=== PATIENT | male | born 1945 | race Caucasian/White ===

== ENCOUNTER 2017-04-16 12:16 | Inpatient (IN) | payer OTHER, MEDICARE ==
--- NOTE | 2017-04-16 13:26 | PDOC ---
History of Present Illness - History of Present Illness Initial Comments: 04/16/17 14:15 Patient is a 72 year old male with significant medical hx of anemia, throat and lung adenocarcinoma s/p resection, s/p chemotherapy and radiation treatment, and emphysema who is presenting to the ED with three days of increasing shortness of breath and RUQ pain. Patient complains of severe RUQ pain that is sharp, non-radiating, and pleuritic but not associated with any nausea or diarrhea. states the patient has had several episodes of vomiting but none today. The patient reports shortness of breath that worsens with exertional activity. He also endorses some productive cough with sputum production. Denies fever, chills, orthopnea, chest pain, palpitations, weakness, dizziness, or lightheadedness. Patient states he had been prescribed home oxygen but he has not filled the prescription because he felt that he hasnt needed it until the last three days. PCP: Bernardino Ybarra <Nyla Goff - Last Filed: 04/16/17 14:44> <Fatoumata Patel - Last Filed: 04/17/17 19:59> - General Chief Complaint: Shortness of Breath Stated Complaint: SENT BY PCP Time Seen by Provider: 04/16/17 13:13 Past History <Nyla Goff - Last Filed: 04/16/17 14:44> - Past Medical History Anemia: No Asthma: No Cancer: Yes (THROAT, LUNG) Cardiac Disorders: No CVA: No COPD: Yes CHF: No Dementia: No Diabetes: No GI Disorders: No Disorders: Yes (H/O KIDNEY STONES) HTN: Yes Hypercholesterolemia: No Liver Disease: No Seizures: No Thyroid Disease: No - Surgical History Abdominal Surgery: Yes (HERNIA) Appendectomy: No Cardiac Surgery: No Cholecystectomy: No Lung Surgery: No Neurologic Surgery: No Orthopedic Surgery: No - Psycho/Social/Smoking Cessation Hx Suicidal Ideation: No Smoking History: Former smoker Have you smoked in the past 12 months: No Number of Cigarettes Smoked Daily: 10 If you are a former smoker, when did you quit?: APRIL 2015 Information on smoking cessation initiated: No 'Breaking Loose' booklet given: 03/29/13 Hx Alcohol Use: No Drug/Substance Use Hx: No Substance Use Type: None Hx Substance Use Treatment: No <Fatoumata Patel - Last Filed: 04/17/17 19:59> - Past Medical History Allergies/Adverse Reactions: Allergies Allergy/AdvReac Type Severity Reaction Status Date / Time No Known Drug Allergies Allergy Verified 04/16/17 12:24 Home Medications: Ambulatory Orders Pantoprazole Sodium [Protonix -] 40 mg PO BID 11/23/15 Aspirin [ASA -] 81 mg PO DAILY 04/16/17 Atorvastatin Ca [Lipitor] 5 mg PO HS 04/16/17 Metronidazole [Flagyl -] 500 mg PO BID 04/16/17 Multivitamins [Tab-A-Vit -] 1 tab PO DAILY 04/16/17 Prednisone 10 mg PO BID 04/16/17 Review of Systems - Review of Systems Comments:: 04/16/17 14:16 GENERAL/CONSTITUTIONAL: No fever or chills. No weakness. HEAD, EYES, EARS, NOSE AND THROAT: No change in vision. No ear pain or discharge. No sore throat. CARDIOVASCULAR: Shortness of breath. No chest pain. RESPIRATORY: Productive cough, dyspnea with exertion. No orthopnea, wheezing, or hemoptysis. GASTROINTESTINAL: RUQ pain, vomiting. No nausea, diarrhea or constipation. GENITOURINARY: No dysuria, frequency, or change in urination. MUSCULOSKELETAL: No joint or muscle swelling or pain. No neck or back pain. ENDOCRINE: No increased thirst. No abnormal weight change. SKIN: No rash NEUROLOGIC: No headache, vertigo, loss of consciousness, or change in strength/ sensation. <ShellFedericoNyla - Last Filed: 04/16/17 14:44> *Physical Exam - Vital Signs Last Vital Signs Temp Pulse Resp BP Pulse Ox 97.7 F 137 H 34 H 123/72 84 L 04/16/17 12:18 04/16/17 12:18 04/16/17 12:18 04/16/17 12:18 04/16/17 12:18 - Physical Exam Comments: 04/16/17 14:17 GENERAL: Awake, alert, and fully oriented, in no acute distress HEAD: No signs of trauma EYES: PERRLA, EOMI, sclera anicteric, conjunctiva clear ENT: Auricles normal inspection, hearing grossly normal, nares patent, oropharynx clear without exudates. Moist mucosa NECK: Normal ROM, supple, no lymphadenopathy, JVD, or masses LUNGS: Slightly tachypneic. Rhonchi bilaterally mostly pronounced on the right. No accessory muscles use. No wheezes, and no crackles HEART: Regular rate and rhythm, normal S1 and S2, no murmurs, rubs or gallops ABDOMEN: Soft, RUQ tenderness with some voluntary guarding, normoactive bowel sounds. No masses EXTREMITIES: Normal range of motion, no edema. No clubbing or cyanosis. No cords, erythema, or tenderness NEUROLOGICAL: AAO x 3. Cranial nerves II through XII grossly intact. Normal speech, normal gait SKIN: Warm, Dry, normal turgor, no rashes or lesions noted. HEMATOLOGIC/LYMPHATIC: No anemia, easy bleeding, or history of blood clots. ALLERGIC/IMMUNOLOGIC: No hives or skin allergy. <Nyla Goff - Last Filed: 04/16/17 14:44> - Vital Signs Last Vital Signs Temp Pulse Resp BP Pulse Ox 97.7 F 137 H 34 H 123/72 84 L 04/16/17 12:18 04/16/17 12:18 04/16/17 12:18 04/16/17 12:18 04/16/17 12:18 <Fatoumata Patel - Last Filed: 04/17/17 19:59> Heart Score/ECG Review #1 04/16/17 14:33 Poor data quality, interpretation may be adversely affected Sinus tachycardia at 123 bpm with premature atrial complexes Otherwise normal ECG <Nyla Goff - Last Filed: 04/16/17 14:44> ED Treatment Course - LABORATORY CBC & Chemistry Diagram: 04/16/17 13:33 04/16/17 13:33 - RADIOLOGY Radiograph Interpretation: 04/16/17 14:44 Chest X-Ray Impression: Chronic lung disease with developing right lung infiltrates as described. Reported By: Jian Orozco MD <Nyla Goff - Last Filed: 04/16/17 14:44> - LABORATORY CBC & Chemistry Diagram: 04/17/17 06:30 04/17/17 06:30 - RADIOLOGY Radiology Studies Ordered: Category Date Time Status CHEST X-RAY PORTABLE* [RAD] Stat Radiology 04/16/17 13:04 Taken <Fatoumata Patel - Last Filed: 04/17/17 19:59> Medical Decision Making - Medical Decision Making 04/16/17 13:36 Pt presents to the ED complaining of shortness of breath and RUQ pain for the last three days. Complaining of MARINELLI and productive cough. Denies fevers. Patient is hypoxic in the ED. reports that he has a history of emphysema and lung CA post resection, and that he has been prescribed home O2 that he does not use. Also has RUQ pain and tenderness. + Rhonchi on exam, worse on the R side. Differential includes PNA, recurrent CA, biliary disease, less likely cardiac disease or pancretitis. WIll check labs and CXR, likely admit to medicine. Will obtain imaging of the RUQ if the CXR is negative for R sided PNA. <Fatoumata Patel - Last Filed: 04/17/17 19:59> *DC/Admit/Observation/Transfer - Attestations Scribe Attestion: 04/16/17 14:20 Documentation prepared by Nyla Goff, acting as medical support assistant for Fatoumata Patel MD. <Nyla Goff - Last Filed: 04/16/17 14:44> - Discharge Dispostion Admit: Yes Decision to Admit order Date/Time: 04/17/17 19:59 <Fatoumata Patel - Last Filed: 04/17/17 19:59> Diagnosis at time of Disposition: Pneumonia - Discharge Dispostion Condition at time of disposition: Good - Referrals
[2017-04-16] MEDS ORDERED: ALBUTEROL SO4 0.083% IH SOL 2.5 MG/3 ML VIAL.NEB. NEB ONE ×2 (13:51→14:21)
[2017-04-16 13:59] LABS: BASOPHIL 0.1 % (0-2.0); EOSINOPHIL 0.3 % (0-4.5); MCH 27.8 pg (25.7-33.7); MEAN CELL VOLUME 84.2 fl (80-96); MEAN PLT VOLUME 8.1 fl (7.5-11.1); PLATELET COUNT 128 K/MM3 (134-434); RDW 16.4 % (11.9-15.9); WHITE BLOOD COUNT 14.1 K/mm3 (4.0-10.0)
[2017-04-16 14:27] LABS: ANION GAP 13 (8-16); BILIRUBIN,TOTAL 0.9 mg/dL (0.2-1.0); CALCIUM 8.4 mg/dL (8.5-10.1); CO2 25 mmol/L (21-32); COCKROFT - GAULT 58.79; CREATININE 1.2 mg/dL (0.7-1.3); GLUCOSE,RANDOM 118 mg/dL (74-106); SGPT/ALT 17 U/L (12-78); TOT PROT 5.7 g/dl (6.4-8.2)
[2017-04-16 14:29] LABS: ALK PHOS 105 U/L (45-117); SGOT/AST 26 U/L (15-37); TROPONIN I < 0.02 ng/ml (0.00-0.05)
[2017-04-16] MEDS ORDERED: LEVOFLOXACIN 750 MG IVPB 150 ML IVPB ONE ×2 (14:41→14:57)
[2017-04-16] MEDS ORDERED: ACETAMINOPHEN 325 MG TABLET (FP) ONE (15:35)
[2017-04-16] MEDS ORDERED: IPRATROPIUM BR 0.02% 0.5 MG/2.5 ML VIAL.NEB. NEB PRN ×2 (17:25→23:26)
[2017-04-16] MEDS ORDERED: ACETAMINOPHEN 325 MG TABLET (FP) PO PRN ×2 (17:29→23:26)
[2017-04-16 19:04] VITALS: BMI 22.1
[2017-04-16 20:01] LABS: ARTERIAL BLD GAS O2 SATURATION 94.2 % (90-98.9); ARTERIAL BLOOD GAS BASE EXCESS 2.3 meq/l (-2-2); ARTERIAL BLOOD GAS HCO3 25.3 meq/L (22-26); ARTERIAL BLOOD GAS PO2 69.3 mmHg (70-100); ARTERIAL BLOOD GAS pH 7.47 (7.35-7.45)
[2017-04-16 20:02] LABS: ALLENS TEST POSITIVE; ART PUNCT SITE RIGHT RADIAL; LPM/O2% NASAL O2; PT. ON O2? 3L
[2017-04-16] MEDS ORDERED: methylPREDNISolone NA SUCC 40 MG/1 ML VIAL IVPB SCH (21:00)
[2017-04-16] MEDS ORDERED: methylPREDNISolone NA SUCC 125 MG/2 ML VIAL ONE (22:30)
[2017-04-17] MEDS: methylPREDNISolone NA SUCC 40 MG/1 ML VIAL IVPB SCH ×4 (02:47→21:50)
[2017-04-17] MEDS ORDERED: LEVOFLOXACIN 500 MG IVPB 100 ML IVPB SCH ×2 (06:00)
[2017-04-17 07:22] LABS: MCH 28.2 pg (25.7-33.7); MCHC 33.5 g/dl (32.0-35.9); MEAN CELL VOLUME 84.4 fl (80-96); MEAN PLT VOLUME 8.1 fl (7.5-11.1); PLATELET COUNT 122 K/MM3 (134-434); WHITE BLOOD COUNT 10.3 K/mm3 (4.0-10.0)
[2017-04-17 08:13] LABS: ALBUMIN 1.9 g/dl (3.4-5.0); ANION GAP 12 (8-16); CALCIUM 8.1 mg/dL (8.5-10.1); CO2 25 mmol/L (21-32); GLUCOSE,RANDOM 142 mg/dL (74-106)
[2017-04-17 08:17] LABS: ALK PHOS 88 U/L (45-117); BILIRUBIN,TOTAL 0.7 mg/dL (0.2-1.0); COCKROFT - GAULT 71.29; CREATININE 0.9 mg/dL (0.7-1.3); SGOT/AST 19 U/L (15-37); SGPT/ALT 16 U/L (12-78); TOT PROT 5.4 g/dl (6.4-8.2)
[2017-04-17 09:37] LABS: INR 1.6 (0.82-1.09); PROTHROMBIN TIME (PATIENT) 17.8 SEC (9.98-11.88)
[2017-04-17] MEDS: SODIUM CHLORIDE 0.45% 1,000 ML IV SCH (10:00)
[2017-04-17] MEDS ORDERED: PANTOPRAZOLE SODIUM 100 ML IVPB SCH (10:00)
[2017-04-17 10:04] LABS: ARTERIAL BLD GAS O2 SATURATION 94.7 % (90-98.9); ARTERIAL BLOOD GAS BASE EXCESS 1.2 meq/l (-2-2); ARTERIAL BLOOD GAS HCO3 24.5 meq/L (22-26); ARTERIAL BLOOD GAS pH 7.45 (7.35-7.45)
[2017-04-17 10:05] LABS: ALLENS TEST POSITIVE; ART PUNCT SITE RIGHT RADIAL; LPM/O2% 4L; PT. ON O2? YES; TYPE OF O2 NASAL CANNULA
[2017-04-17] MEDS: IPRATROPIUM BR 0.02% 0.5 MG/2.5 ML VIAL.NEB. NEB SCH ×3 (10:06→22:55)
[2017-04-17] MEDS: PANTOPRAZOLE SODIUM 40 MG/100 ML PRE-DOCKED IVPB SCH (10:50)
[2017-04-17] MEDS ORDERED: IPRATROPIUM BR 0.02% 0.5 MG/2.5 ML VIAL.NEB. NEB PRN (12:00)
--- NOTE | 2017-04-17 12:12 | PN ---
Progress Note (short form) - Note Progress Note: ID Consult dictated 72 y/o male PMH lung ca (11/30) admitted with several days hx RUQ pain, N/V US abdo cholelithiasis without evidence of cholecystitis CXR + R lung infiltrates R pneumonia Possible cholecystitis Hx lung ca ? recurrence Obtain c/s CT chest , A/P Empiric zosyn
[2017-04-17] MEDS ORDERED: PIPERACILLIN/TAZOB 3.375 GM 3.375 GM in DEXTROSE 5%-WATER - 50 ML IVPB SCH (12:15)
--- NOTE | 2017-04-17 12:41 | HP ---
Admitting History and Physical - Admission Chief Complaint: c/o cough ruq pain. 3 days History of Present Illness: h/o lung ca copd bronchitis History Source: Patient, Family Member Limitations to Obtaining History: No Limitations - Past Medical History Pulmonary: Yes: COPD Gastrointestinal: Yes: Other (gallstones) Hepatobiliary: Yes: Cholelithiasis, Other (fatty liver) Heme/Onc: Yes: Anemia, Current Chemotherapy, Current Radiation Therapy ENT: Yes: Other (cataract sx) - Smoking History Smoking history: Former smoker Have you smoked in the past 12 months: No Aproximately how many cigarettes per day: 10 If you are a former smoker, when did you quit?: APRIL 2015 - Alcohol/Substance Use Hx Alcohol Use: No - Social History ADL: Independent History of Recent Travel: No Home Medications - Allergies Allergies/Adverse Reactions: Allergies Allergy/AdvReac Type Severity Reaction Status Date / Time No Known Drug Allergies Allergy Verified 04/16/17 12:24 - Home Medications Home Medications: Ambulatory Orders Pantoprazole Sodium [Protonix -] 40 mg PO BID 11/23/15 Aspirin [ASA -] 81 mg PO DAILY 04/16/17 Atorvastatin Ca [Lipitor] 5 mg PO HS 04/16/17 Metronidazole [Flagyl -] 500 mg PO BID 04/16/17 Multivitamins [Tab-A-Vit -] 1 tab PO DAILY 04/16/17 Prednisone 10 mg PO BID 04/16/17 Family Disease History - Family Disease History Family History: Unremarkable Review of Systems - Review of Systems Constitutional: reports: Other (cough ruq pain) Eyes: reports: No Symptoms HENT: reports: No Symptoms Neck: reports: No Symptoms Cardiovascular: reports: No Symptoms Respiratory: reports: Cough, SOB on Exertion Gastrointestinal: reports: Abdominal Pain Genitourinary: reports: No Symptoms Breasts: reports: No Symptoms Reported Musculoskeletal: reports: No Symptoms Integumentary: reports: No Symptoms Neurological: reports: No Symptoms Endocrine: reports: No Symptoms Hematology/Lymphatic: reports: No Symptoms Psychiatric: reports: No Symptoms Physical Examination Vital Signs: Vital Signs Temperature 97.7 F 04/17/17 12:35 Pulse Rate 101 H 04/17/17 12:35 Respiratory Rate 24 04/17/17 12:35 Blood Pressure 102/63 04/17/17 12:35 O2 Sat by Pulse Oximetry (%) 95 04/17/17 10:06 Constitutional: Yes: Well Nourished Eyes: Yes: WNL HENT: Yes: WNL Neck: Yes: WNL Cardiovascular: Yes: WNL Respiratory: Yes: SOB on Exertion Gastrointestinal: Yes: Soft ...Rectal Exam: Yes: Deferred Renal/: Yes: WNL Breast(s): Yes: WNL Musculoskeletal: Yes: WNL Extremities: Yes: WNL Edema: No Peripheral Pulses WNL: Yes Integumentary: Yes: WNL Neurological: Yes: WNL ...Motor Strength: WNL Psychiatric: Yes: WNL Labs: CBC, BMP 04/17/17 06:30 04/17/17 06:30 Assessment/Plan neb tx pulm f/u abgs? iv fluids liq diet chkj labs in am
[2017-04-17] MEDS: PIPERACILLIN/TAZOB 3.375 GM 50 ML IVPB SCH ×3 (13:01→20:16)
--- NOTE | 2017-04-17 14:02 | CON.PULM ---
Consult Consult Specialty:: PULMONARY Referred by:: JACKIE Reason for Consultation:: LUNG CA/SOB /COUGH - History of Present Illness Chief Complaint: SOB/COUGH/SPUTUM ABNORMAL CXR History of Present Illness: Patient is a 72 year old male with significant medical hx of anemia, laryngeal and lung adenocarcinoma s/p resection, s/p chemotherapy and radiation treatment , and emphysema who is presenting to the ED with five days of increasing shortness of breath and RUQ pain. Patient complains of severe RUQ pain that is sharp and was associated with diarrhea and vomiting. The patient reports shortness of breath that worsens with exertional activity. He also complains of productive cough with sputum production which is chronic. Denies fever, chills, orthopnea, chest pain, palpitations, weakness, dizziness, or lightheadedness. Presently feel improved. 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 No: Cancer Hepatobiliary: Yes: Cholelithiasis, Other (fatty liver) Renal/: No: Renal Failure Heme/Onc: Yes: Anemia Infectious Disease: No: AIDS Psych: No: Addictions Musculoskeletal: No: Chronic low back pain Rheumatology: No: Fibromyalgia ENT: Yes: Other (cataract sx) - Past Surgical History Past Surgical History: Yes: Hernia Repair - Alcohol/Substance Use Hx Alcohol Use: No History of Substance Use: reports: None - Smoking History Smoking history: Former smoker Have you smoked in the past 12 months: No Aproximately how many cigarettes per day: 10 If you are a former smoker, when did you quit?: APRIL 2015 - Social History ADL: Independent History of Recent Travel: No Home Medications - Allergies Allergies/Adverse Reactions: Allergies Allergy/AdvReac Type Severity Reaction Status Date / Time No Known Drug Allergies Allergy Verified 04/16/17 12:24 - Home Medications Home Medications: Ambulatory Orders Pantoprazole Sodium [Protonix -] 40 mg PO BID 11/23/15 Aspirin [ASA -] 81 mg PO DAILY 04/16/17 Atorvastatin Ca [Lipitor] 5 mg PO HS 04/16/17 Metronidazole [Flagyl -] 500 mg PO BID 04/16/17 Multivitamins [Tab-A-Vit -] 1 tab PO DAILY 04/16/17 Prednisone 10 mg PO BID 04/16/17 Family Disease History - Family Disease History Family History: Unremarkable Review of Systems - Review of Systems Cardiovascular: reports: Chest Pain (RIGHT LOWER RIBS) Respiratory: reports: Cough, Exercise Intolerance, SOB on Exertion. denies: Hemoptysis Gastrointestinal: reports: Abdominal Pain Genitourinary: reports: No Symptoms Breasts: reports: No Symptoms Reported Musculoskeletal: reports: No Symptoms Integumentary: reports: No Symptoms Neurological: reports: No Symptoms Endocrine: reports: No Symptoms Hematology/Lymphatic: reports: No Symptoms Physical Exam Vital Sings: Vital Signs Temperature 97.7 F 04/17/17 12:35 Pulse Rate 101 H 04/17/17 12:35 Respiratory Rate 24 04/17/17 12:35 Blood Pressure 102/63 04/17/17 12:35 O2 Sat by Pulse Oximetry (%) 95 04/17/17 10:06 Constitutional: Yes: Calm Eyes: Yes: EOM Intact HENT: Yes: Normocephalic Neck: Yes: Trachea Midline Cardiovascular: Yes: Regular Rate and Rhythm, S1, S2 Respiratory: Yes: Rales (ON RIGHT) ...Inspection: Yes: Other (NO ZOSTER NOTED) Gastrointestinal: Yes: Soft Extremities: Yes: WNL Edema: No Neurological: Yes: Alert Labs: CBC, BMP 04/17/17 06:30 04/17/17 06:30 ABG Results ABG pH 7.45 (7.35-7.45) 04/17/17 09:45 ABG pCO2 at Pt Temp 35.8 mmHg (35-45) 04/17/17 09:45 ABG pO2 at Pt Temp 71.0 mmHg (70-100) 04/17/17 09:45 ABG HCO3 24.5 meq/L (22-26) 04/17/17 09:45 ABG O2 Sat (Measured) 94.7 % (90-98.9) 04/17/17 09:45 ABG O2 Content 16.8 % vol (15-22) 04/17/17 09:45 ABG Base Excess 1.2 meq/l (-2-2) 04/17/17 09:45 REST REVIEWED Imaging - Results Chest X-ray: Image Reviewed Ultrasound: Report Reviewed Problem List - Problems (1) COPD (chronic obstructive pulmonary disease) Code(s): J44.9 - CHRONIC OBSTRUCTIVE PULMONARY DISEASE, UNSPECIFIED (2) Hx of gallstones Code(s): Z87.19 - PERSONAL HISTORY OF OTHER DISEASES OF THE DIGESTIVE SYSTEM (3) Lung neoplasm Code(s): D49.1 - NEOPLASM OF UNSPECIFIED BEHAVIOR OF RESPIRATORY SYSTEM Assessment/Plan RIGHT UPPER ABD QUADRANT/RIGHT LOWER RIB REGION PAIN WHICH HAS NOW RESOLVED H/O LUNG/LARYNGEAL CA S/P CHEMOTX/RT/RESECTION ABD SONO DOES NOT SUPPORT ACUTE CHOLECYSTITIS NO EVIDENCE OF SHINGLES WOULD OBTAIN CT CHEST/ABD GIVEN H/O LUNG CA AGREE WITH O2 SUPPLEMENTATION NEEDED/BRONCHODILATORS/EMPIRIC ANTIBIOTICS NO NEED FOR HIGH DOSE STEROIDS/WOULD DISCONTINUE CHECK CULTURES PENDING WILL FOLLOW THANK YOU Nacho GARCIA MD
--- NOTE | 2017-04-17 15:21 | CONS ---
DATE OF CONSULTATION: HISTORY: The patient is a 72-year-old male with a history of head and neck cancer as well as stage 3 carcinoma of the lung now evaluated for pneumonia versus cholecystitis. The patient does not give a reliable history. He reports he has not been feeling well for the past 4-5 days. He developed intermittent, severe right upper quadrant abdominal pain to the point where he was unable to palpate that area without eliciting pain. In addition, he had episodes of nausea and vomiting. The symptoms were preceded by episodes of diarrhea. He presented to the emergency room where he was afebrile, however, had an elevated white blood cell count. A sonogram was performed of the right upper quadrant and performed cholelithiasis without evidence of acute cholecystitis. Chest x-ray showed patchy infiltrate involving the right lung field. The patient reports cough productive of yellowish sputum. He denies any hemoptysis. He denies any associated fever or chills. The patient was diagnosed with stage 3 head and neck cancer as well as stage 3 lung cancer in November 2015. He reports undergoing radiotherapy as well as chemotherapy at [facility]. PAST MEDICAL HISTORY: As above. ALLERGIES: No known allergies. MEDICATIONS: Protonix, aspirin, Lipitor, prednisone. SOCIAL HISTORY: Former smoker. Denies history of alcohol abuse. SYSTEMS REVIEW: Neurologic: No loss of consciousness, seizure activity, focal weakness. Cardiac: Negative chest pain or palpitations. Respiratory: As per HPI. Gastrointestinal: As per HPI. Genitourinary: Negative for urinary tract infection. LABORATORY DATA: White count on admission 14,000, presently 10.3, hematocrit 39.7, platelet count 122, BUN 25, creatinine 0.9. Liver enzymes normal. Blood cultures pending. PHYSICAL EXAMINATION: General: He is awake and alert. He is in no acute distress. His breathing is nonlabored. Vital Signs: Temperature 97.8, blood pressure 97/48, pulse 95 and regular, respirations 24 per minute. HEENT: Sclerae anicteric. Heart: Sounds S1, S2. Lungs: Rhonchi bilaterally right greater than left with crepitation right mid and lower lung field. Abdomen: Soft. There is no tenderness elicited. No mass, rebound, or rigidity. No Nur sign. Extremities: Negative for edema. A 72-year-old male with a history of head, neck, and lung cancer status post radiation and chemotherapy now admitted with several days history of right upper quadrant abdominal pain, nausea, and vomiting. Sonogram shows cholelithiasis without evidence of acute cholecystitis. Chest x-ray shows diffuse right-sided infiltrate. IMPRESSION: 1. Right-sided pneumonia. 2. Possible acute cholecystitis. 3. Possible recurrent lung cancer. 4. Leukocytosis. Clinical presentation suggestive of acute cholecystitis; however, at the present time, he is pain free. Liver enzymes are normal. No sonographic evidence of dilated ducts. He does have an abnormal chest x-ray, which may represent community-acquired versus atypical pneumonia. Considered about the possibility of recurrent lung cancer. PLAN: We will obtain cultures. Obtain sputum C and S, urine Legionella antigen. CAT scan of the chest, abdomen, and pelvis to further evaluate right-sided pneumonia and exclude the possibility of recurrent cancer as well as CAT scan of the biliary system. Empiric antibiotic coverage with Zosyn. Further recommendations pending cultures. We will follow. Thank you for the kind referral. HANNAH NUNO M.D. [id number]
--- NOTE | 2017-04-17 19:19 | EKG ---
Test Reason : Blood Pressure : / mmHG Vent. Rate : 123 BPM Atrial Rate : 123 BPM P-R Int : 126 ms QRS Dur : 088 ms QT Int : 318 ms P-R-T Axes : 073 028 065 degrees QTc Int : 455 ms POOR DATA QUALITY, INTERPRETATION MAY BE ADVERSELY AFFECTED SINUS TACHYCARDIA WITH PREMATURE ATRIAL COMPLEXES OTHERWISE NORMAL ECG WHEN COMPARED WITH ECG OF 23-NOV-2015 00:24, PREMATURE ATRIAL COMPLEXES ARE NOW PRESENT Confirmed by ELIZABETH ANTHONY MD ([id number]) on 04/17/2017 7:18:29 PM Referred By: Confirmed By:ELIZABETH ANTHONY MD
[2017-04-18] MEDS: methylPREDNISolone NA SUCC 40 MG/1 ML VIAL IVPB SCH ×2 (02:14→08:10)
[2017-04-18] MEDS: PIPERACILLIN/TAZOB 3.375 GM 50 ML IVPB SCH ×3 (02:15→17:38)
[2017-04-18] MEDS: IPRATROPIUM BR 0.02% 0.5 MG/2.5 ML VIAL.NEB. NEB SCH ×6 (02:21→21:59)
[2017-04-18 07:12] LABS: CALCIUM 7.9 mg/dL (8.5-10.1); COCKROFT - GAULT 71.29; CREATININE 0.9 mg/dL (0.7-1.3)
[2017-04-18 08:48] LABS: BASOPHIL 0.1 % (0-2.0); MCH 28.7 pg (25.7-33.7); MCHC 34.1 g/dl (32.0-35.9); MEAN CELL VOLUME 84.3 fl (80-96); MEAN PLT VOLUME 8.3 fl (7.5-11.1); NEUTROPHILS 97.5 % (42.8-82.8); PLATELET COUNT 137 K/MM3 (134-434); RDW 16.2 % (11.9-15.9); WHITE BLOOD COUNT 11.3 K/mm3 (4.0-10.0)
--- NOTE | 2017-04-18 10:34 | PN ---
Progress Note, Physician - Current Medication List Current Medications: Active Medications Acetaminophen (Tylenol -) 650 mg PO Q4H PRN PRN Reason: FEVER OR PAIN Piperacillin Sod/Tazobactam Sod (Zosyn 3.375gm Ivpb (Pre-Docked)) 50 mls @ 100 mls/hr IVPB Q8H-IV ADAN PRN Reason: Protocol Last Admin: 04/18/17 02:15 Dose: 100 mls/hr Ipratropium [place] (Atrovent 0.02% Nebulizer -) 1 amp NEB Q4HPO ADAN Last Admin: 04/18/17 05:49 Dose: 1 amp Methylprednisolone Sodium Succinate (Solu-Medrol -) 40 mg IVPB Q6H-IV ADAN Last Admin: 04/18/17 08:10 Dose: 40 mg Pantoprazole Sodium (Protonix 40mg Ivpb (Pre-Docked)) 40 mg IVPB DAILY ADAN Last Admin: 04/17/17 10:50 Dose: 40 mg - Objective Vital Signs: Vital Signs Temperature 97.5 F L 04/18/17 09:25 Pulse Rate 96 H 04/18/17 09:25 Respiratory Rate 20 04/18/17 09:25 Blood Pressure 98/48 04/18/17 09:25 O2 Sat by Pulse Oximetry (%) 93 L 04/17/17 21:10 Labs: CBC, BMP 04/18/17 06:15 04/18/17 06:15 INR, PTT INR 1.60 (0.82-1.09) H 04/17/17 06:30 Assessment/Plan awaitig ct abd befor advancing diet cont as is d/c iv na dropping chk labs i am reduce iv
[2017-04-18] MEDS: PANTOPRAZOLE SODIUM 40 MG/100 ML PRE-DOCKED IVPB SCH (10:38)
--- NOTE | 2017-04-18 12:08 | PN ---
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 HAVE CHANGED TO ORAL PREDNISONE AWAIT OFFICIAL REPORTS ON CT SCANS aNcho GARCIA MD Problem List - Problems (1) COPD (chronic obstructive pulmonary disease) Code(s): J44.9 - CHRONIC OBSTRUCTIVE PULMONARY DISEASE, UNSPECIFIED (2) Hx of gallstones Code(s): Z87.19 - PERSONAL HISTORY OF OTHER DISEASES OF THE DIGESTIVE SYSTEM (3) Lung neoplasm Code(s): D49.1 - NEOPLASM OF UNSPECIFIED BEHAVIOR OF RESPIRATORY SYSTEM
[2017-04-18] MEDS: SODIUM CHLORIDE 1,000 ML IV SCH (12:56)
[2017-04-18] MEDS: predniSONE 20 MG TABLET (UD) PO SCH (14:03)
[2017-04-18] MEDS: SODIUM CHLORIDE 0.45% 1,000 ML IV SCH (14:05)
[2017-04-19] MEDS: SODIUM CHLORIDE 1,000 ML IV SCH ×2 (01:41→10:45)
[2017-04-19] MEDS: PIPERACILLIN/TAZOB 3.375 GM 50 ML IVPB SCH ×2 (01:41→11:17)
[2017-04-19] MEDS: IPRATROPIUM BR 0.02% 0.5 MG/2.5 ML VIAL.NEB. NEB SCH ×6 (02:40→22:25)
[2017-04-19 07:16] LABS: BASOPHIL 0.3 % (0-2.0); EOSINOPHIL 0.1 % (0-4.5); MCH 28.3 pg (25.7-33.7); MCHC 33.6 g/dl (32.0-35.9); MEAN CELL VOLUME 84.1 fl (80-96); MEAN PLT VOLUME 7.6 fl (7.5-11.1); NEUTROPHILS 92.4 % (42.8-82.8); PLATELET COUNT 137 K/MM3 (134-434); WHITE BLOOD COUNT 10.4 K/mm3 (4.0-10.0)
[2017-04-19 07:43] LABS: CALCIUM 7.9 mg/dL (8.5-10.1); COCKROFT - GAULT 71.29; CREATININE 0.9 mg/dL (0.7-1.3)
[2017-04-19] MEDS: predniSONE 20 MG TABLET (UD) PO SCH (09:22)
[2017-04-19] MEDS: PANTOPRAZOLE SODIUM 40 MG/100 ML PRE-DOCKED IVPB SCH (09:24)
[2017-04-19] MEDS ORDERED: LOPERAMIDE HCL 2 MG CAPSULE PO PRN (11:57)
[2017-04-19] MEDS ORDERED: metroNIDAZOLE 250 MG TABLET PO SCH (12:15)
--- NOTE | 2017-04-19 13:43 | PN ---
Progress Note, Physician History of Present Illness: pulmonary alert,nad,-sob,-cp,+cough yellow sputum,-hemoptysis - Current Medication List Current Medications: Active Medications Acetaminophen (Tylenol -) 650 mg PO Q4H PRN PRN Reason: FEVER OR PAIN Sodium Chloride (Normal Saline -) 1,000 mls @ 42 mls/hr IV ASDIR [facility] Last Admin: 04/19/17 01:41 Dose: 42 mls/hr Ipratropium [place] (Atrovent 0.02% Nebulizer -) 1 amp NEB Q4HPO [facility] Last Admin: 04/19/17 10:06 Dose: 1 amp Loperamide HCl (Imodium -) 2 mg PO Q4H PRN PRN Reason: DIARRHEA Loperamide HCl (Imodium -) 2 mg PO Q6H PRN PRN Reason: DIARRHEA Metronidazole (Flagyl -) 500 mg PO BID [facility] Stop: 04/24/17 12:14 Pantoprazole Sodium (Protonix 40mg Ivpb (Pre-Docked)) 40 mg IVPB DAILY [facility] Last Admin: 04/19/17 09:24 Dose: 40 mg Prednisone (Deltasone -) 20 mg PO DAILY [facility] Last Admin: 04/19/17 09:22 Dose: 20 mg - Objective Vital Signs: Vital Signs Temperature 97.6 F 04/19/17 09:59 Pulse Rate 98 H 04/19/17 09:59 Respiratory Rate 18 04/19/17 09:59 Blood Pressure 105/57 04/19/17 09:59 O2 Sat by Pulse Oximetry (%) 94 L 04/19/17 09:58 Constitutional: Yes: Well Nourished, Calm Eyes: Yes: WNL HENT: Yes: WNL, Tonsillar Exudate Cardiovascular: Yes: Regular Rate and Rhythm, S1, S2 Respiratory: Yes: Rhonchi (few scattered rhonchi) Gastrointestinal: Yes: Normal Bowel Sounds, Soft Extremities: Yes: WNL Edema: No Labs: CBC, BMP 04/19/17 06:40 04/19/17 06:40 INR, PTT INR 1.60 (0.82-1.09) H 04/17/17 06:30 - ....Imaging Cat Scan: Report Reviewed, Image Reviewed Assessment/Plan Problem List - Problems (1) COPD (chronic obstructive pulmonary disease) Code(s): J44.9 - CHRONIC OBSTRUCTIVE PULMONARY DISEASE, UNSPECIFIED (2) Hx of gallstones Code(s): Z87.19 - PERSONAL HISTORY OF OTHER DISEASES OF THE DIGESTIVE SYSTEM (3) Lung neoplasm Code(s): D49.1 - NEOPLASM OF UNSPECIFIED BEHAVIOR OF RESPIRATORY SYSTEM Assessment/Plan RIGHT UPPER ABD QUADRANT/RIGHT LOWER RIB REGION PAIN WHICH HAS NOW RESOLVED H/O LUNG/LARYNGEAL CA S/P CHEMOTX/RT/RESECTION R LUNG NODULAR CONSOLIDATIONS O2 SUPPLEMENTATION BRONCHODILATORS EMPIRIC ANTIBIOTICS DR RAY
[2017-04-19] MEDS: LOPERAMIDE HCL 2 MG CAPSULE PO PRN (14:35)
--- NOTE | 2017-04-19 14:51 | PN ---
Progress Note, Physician - Current Medication List Current Medications: Active Medications Acetaminophen (Tylenol -) 650 mg PO Q4H PRN PRN Reason: FEVER OR PAIN Sodium Chloride (Normal Saline -) 1,000 mls @ 42 mls/hr IV ASDIR [facility] Last Admin: 04/19/17 10:45 Dose: 42 mls/hr Ipratropium [place] (Atrovent 0.02% Nebulizer -) 1 amp NEB Q4HPO [facility] Last Admin: 04/19/17 10:06 Dose: 1 amp Loperamide HCl (Imodium -) 2 mg PO Q4H PRN PRN Reason: DIARRHEA Last Admin: 04/19/17 14:35 Dose: 2 mg Loperamide HCl (Imodium -) 2 mg PO Q6H PRN PRN Reason: DIARRHEA Metronidazole (Flagyl -) 500 mg PO BID [facility] Stop: 04/24/17 12:14 Last Admin: 04/19/17 14:35 Dose: 500 mg Pantoprazole Sodium (Protonix 40mg Ivpb (Pre-Docked)) 40 mg IVPB DAILY [facility] Last Admin: 04/19/17 09:24 Dose: 40 mg Prednisone (Deltasone -) 20 mg PO DAILY [facility] Last Admin: 04/19/17 09:22 Dose: 20 mg - Objective Vital Signs: Vital Signs Temperature 97.6 F 04/19/17 09:59 Pulse Rate 98 H 04/19/17 09:59 Respiratory Rate 18 04/19/17 09:59 Blood Pressure 105/57 04/19/17 09:59 O2 Sat by Pulse Oximetry (%) 94 L 04/19/17 09:58 Labs: CBC, BMP 04/19/17 06:40 04/19/17 06:40 INR, PTT INR 1.60 (0.82-1.09) H 04/17/17 06:30 Assessment/Plan pt feel better c/o loose bms vss flagly po given zosyn stopped but restarted by pulm will f/u out pt [facility] chk stool
--- NOTE | 2017-04-19 14:58 | PN ---
Progress Note (short form) - Note Progress Note: surgery pt seen and examined. no further pain. afebrile abd- soft, nt Plan- ruq pain in setting of pneumonia, possible right lung ca, and right sided colitis with gallstones. clinically resolved. pt is a poor candidate for surgery and unclear if gb is source of pain. would not offer elective surgery at this time.
[2017-04-19] MEDS ORDERED: PIPERACILLIN/TAZOB 3.375 GM/50 ML PRE-DOCKED IVPB SCH (15:00)
--- NOTE | 2017-04-19 15:58 | PN ---
Progress Note (short form) - Note Progress Note: reports 2 days of diarrhea at home, resolved and then restarted yesterday no abdominal pain, feels better now Vital Signs Period Temp Pulse Resp BP Sys/Kapoor Pulse Ox Last 24 Hr 97.5 F-97.9 F 89-104 16-20 105-136/44-77 94-95 cor-rrr lungs bilateral rhonchi abd soft,nt ext no edema CBC, BMP 04/19/17 06:40 04/19/17 06:40 Microbiology 04/16/17 14:48 Blood - Peripheral Venous Blood Culture - Preliminary NO GROWTH OBTAINED AFTER 72 HOURS, INCUBATION TO CONTINUE FOR 2 DAYS. 04/16/17 14:48 Blood - Peripheral Venous Blood Culture - Preliminary NO GROWTH OBTAINED AFTER 72 HOURS, INCUBATION TO CONTINUE FOR 2 DAYS. 04/17/17 18:45 Sputum - Expectorated Gram Stain - Final 04/17/17 18:45 Sputum - Expectorated Sputum Culture - Preliminary NORMAL RESPIRATORY ISABEL 04/17/17 18:45 Urine For Antigen Detection Legionella Antigen - Final 04/17/17 18:45 Urine For Antigen Detection Streptococcus pneumoniae Antigen (M - Final a/p possible pneumonia possible colitis- history of diarrhea check stool cdiff, stool culture agree with flagyl switch to rocephin
[2017-04-19] MEDS: cefTRIAXone 1 GM/50 ML BAG (PRE-DOCKED) IVPB SCH (16:54)
[2017-04-19] MEDS: metroNIDAZOLE 250 MG TABLET PO SCH (21:28)
[2017-04-20] MEDS: IPRATROPIUM BR 0.02% 0.5 MG/2.5 ML VIAL.NEB. NEB SCH ×3 (02:05→09:51)
[2017-04-20] MEDS: SODIUM CHLORIDE 1,000 ML IV SCH ×3 (02:42→23:24)
[2017-04-20] MEDS: metroNIDAZOLE 250 MG TABLET PO SCH ×3 (06:19→21:48)
[2017-04-20] MEDS: ASPIRIN 81 MG CHEWABLE TABLETS PO ONE ×2 (09:25→12:12)
[2017-04-20] MEDS: cefTRIAXone 1 GM/50 ML BAG (PRE-DOCKED) IVPB SCH (09:29)
[2017-04-20] MEDS ORDERED: ONDANSETRON 4 MG/2 ML VIAL IVPB PRN ×2 (10:12→10:13)
[2017-04-20 10:52] LABS: ARTERIAL BLD GAS O2 SATURATION 93.6 % (90-98.9); ARTERIAL BLOOD GAS BASE EXCESS 4.8 meq/l (-2-2); ARTERIAL BLOOD GAS HCO3 28.7 meq/L (22-26); ARTERIAL BLOOD GAS pH 7.46 (7.35-7.45)
--- NOTE | 2017-04-20 10:55 | EKG ---
Test Reason : Blood Pressure : / mmHG Vent. Rate : 125 BPM Atrial Rate : 125 BPM P-R Int : 128 ms QRS Dur : 094 ms QT Int : 304 ms P-R-T Axes : 054 028 057 degrees QTc Int : 438 ms SINUS TACHYCARDIA WITH PREMATURE ATRIAL COMPLEXES OTHERWISE NORMAL ECG WHEN COMPARED WITH ECG OF 16-APR-2017 14:01, NO SIGNIFICANT CHANGE WAS FOUND Confirmed by SUDHEER HARDEN, RACHEL ([id number]) on 04/20/2017 10:55:34 AM Referred By: Margi HUBBARD Confirmed By:RACHEL WILLARD MD
[2017-04-20 10:57] LABS: ALLENS TEST POSITIVE; ART PUNCT SITE RIGHT RADIAL; LPM/O2% 3L; PT. ON O2? YES; TYPE OF O2 NASAL
[2017-04-20 10:58] LABS: ARTERIAL BLOOD GAS PO2 65.8 mmHg (70-100)
[2017-04-20] MEDS: PANTOPRAZOLE SODIUM 40 MG/100 ML PRE-DOCKED IVPB SCH (11:16)
--- NOTE | 2017-04-20 11:17 | PN ---
Progress Note, Physician Chief Complaint: nasea ruq pain now resoled sv tach - Current Medication List Current Medications: Active Medications Acetaminophen (Tylenol -) 650 mg PO Q4H PRN PRN Reason: FEVER OR PAIN Ceftriaxone Sodium (Rocephin 1gm Ivpb (Pre-Docked)) 1 gm IVPB DAILY [facility] PRN Reason: Protocol Last Admin: 04/20/17 09:29 Dose: 1 gm Sodium Chloride (Normal Saline -) 1,000 mls @ 42 mls/hr IV ASDIR [facility] Last Admin: 04/20/17 02:42 Dose: 42 mls/hr Ipratropium [place] (Atrovent 0.02% Nebulizer -) 1 amp NEB Q4HPO [facility] Last Admin: 04/20/17 09:51 Dose: 1 amp Loperamide HCl (Imodium -) 2 mg PO Q4H PRN PRN Reason: DIARRHEA Last Admin: 04/19/17 14:35 Dose: 2 mg Loperamide HCl (Imodium -) 2 mg PO Q6H PRN PRN Reason: DIARRHEA Metronidazole (Flagyl -) 500 mg PO TID [facility] Last Admin: 04/20/17 06:19 Dose: 500 mg Ondansetron HCl (Zofran Injection) 4 mg IVPB Q4H PRN PRN Reason: NAUSEA AND/OR VOMITING Last Admin: 04/20/17 10:32 Dose: 4 mg Ondansetron HCl (Zofran Injection) 4 mg IVPB Q6H PRN PRN Reason: NAUSEA AND/OR VOMITING Pantoprazole Sodium (Protonix 40mg Ivpb (Pre-Docked)) 40 mg IVPB DAILY [facility] Last Admin: 04/20/17 09:25 Dose: 40 mg - Objective Vital Signs: Vital Signs Temperature 99.2 F 04/20/17 09:21 Pulse Rate 127 H 04/20/17 09:21 Respiratory Rate 28 H 04/20/17 09:21 Blood Pressure 110/50 04/20/17 09:21 O2 Sat by Pulse Oximetry (%) 94 L 04/20/17 09:38 Constitutional: Yes: Calm Eyes: Yes: WNL HENT: Yes: WNL Neck: Yes: WNL Cardiovascular: Yes: WNL Respiratory: Yes: Diminished Gastrointestinal: Yes: Normal Bowel Sounds, Soft ...Rectal Exam: Yes: Deferred Genitourinary: Yes: WNL Breast(s): Yes: WNL Musculoskeletal: Yes: WNL Extremities: Yes: WNL Edema: No Peripheral Pulses WNL: Yes Integumentary: Yes: WNL Neurological: Yes: WNL ...Motor Strength: WNL Psychiatric: Yes: WNL Labs: CBC, BMP 04/19/17 06:40 04/19/17 06:40 INR, PTT INR 1.60 (0.82-1.09) H 04/17/17 06:30 Assessment/Plan neb tx strat card enzymes now ekg abg gi to see pt chest p/t zofranpo lung ca morfine if pain increses doubt pe all colitis related diarrea resolving f/u pt closely outcome will be poor if underlinig pneumonia not better if there is a pneumonia and not ca lung need to stabalize pt to go to [facility]
[2017-04-20 11:35] LABS: TROPONIN I < 0.02 ng/ml (0.00-0.05)
--- NOTE | 2017-04-20 11:42 | PN ---
Progress Note (short form) - Note Progress Note: PULMONARY Breathing about the same as yesterday. No fevers or chills but coughing up thick brown/yellow sputum. Last Vital Signs Temp Pulse Resp BP Pulse Ox 99.2 F 127 H 28 H 110/50 94 L 04/20/17 09:21 04/20/17 09:21 04/20/17 09:21 04/20/17 09:21 04/20/17 09:38 Gen: mildly tachypneic at rest Heart: tachycardic, regular Lung: scattered rhonchi Abd: soft, nontender Ext: no edema CBC, BMP 04/19/17 06:40 04/19/17 06:40 Active Medications Acetaminophen (Tylenol -) 650 mg PO Q4H PRN PRN Reason: FEVER OR PAIN Albuterol/Ipratropium (Duoneb -) 1 amp NEB Q4H PRN PRN Reason: SHORTNESS OF BREATH Ceftriaxone Sodium (Rocephin 1gm Ivpb (Pre-Docked)) 1 gm IVPB DAILY [facility] PRN Reason: Protocol Last Admin: 04/20/17 09:29 Dose: 1 gm Sodium Chloride (Normal Saline -) 1,000 mls @ 42 mls/hr IV ASDIR [facility] Last Admin: 04/20/17 02:42 Dose: 42 mls/hr Loperamide HCl (Imodium -) 2 mg PO Q4H PRN PRN Reason: DIARRHEA Last Admin: 04/19/17 14:35 Dose: 2 mg Loperamide HCl (Imodium -) 2 mg PO Q6H PRN PRN Reason: DIARRHEA Metronidazole (Flagyl -) 500 mg PO TID [facility] Last Admin: 04/20/17 06:19 Dose: 500 mg Ondansetron HCl (Zofran Injection) 4 mg IVPB Q4H PRN PRN Reason: NAUSEA AND/OR VOMITING Last Admin: 04/20/17 10:32 Dose: 4 mg Ondansetron HCl (Zofran Injection) 4 mg IVPB Q6H PRN PRN Reason: NAUSEA AND/OR VOMITING Pantoprazole Sodium (Protonix 40mg Ivpb (Pre-Docked)) 40 mg IVPB DAILY [facility] Last Admin: 04/20/17 11:16 Dose: 40 mg A/P Pneumonia r/o Colitis Lung/Laryngeal Ca s/p Chemotherapy/RT COPD/Emphysema - continue antibiotics - f/u cultures - inhaled bronchodilators - O2 as needed - DVT prophylaxis
--- NOTE | 2017-04-20 12:35 | CON.CARD ---
Cardiology Consult (text) - Consultation Consultation Note: CC: tachycardia 72 yo male with h/o lung adenocarcinoma s/p resection chemo and XRT, copd, cholelithiasis, fatty liver who presents with nausea/vomiting. Hospital course complicated by tachycardia. Daughter states that is followed by cardiology. Heart rate has been slowly rising over the past few months. Resting HR now in the 100's. Had recent echocardiogram for further evaluation. Otherwise, no cardiac history. not on home oxygen. + n/v/d now improving. taking po. + fatigue. + cough. denies dysphagia. denies f/c/s, h/a, congestion, rashes, bleeding. denies sob, orthopnea, pnd, le edema, palps, dizziness. 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 Fam Hx: No CAD/ND ROS: per HPI Ambulatory Orders Pantoprazole Sodium [Protonix -] 40 mg PO BID 11/23/15 Aspirin [ASA -] 81 mg PO DAILY 04/16/17 Atorvastatin Ca [Lipitor] 5 mg PO HS 04/16/17 Metronidazole [Flagyl -] 500 mg PO BID 04/16/17 Multivitamins [Tab-A-Vit -] 1 tab PO DAILY 04/16/17 Prednisone 10 mg PO BID 04/16/17 Current Medications Acetaminophen (Tylenol -) 650 mg PO Q4H PRN PRN Reason: FEVER OR PAIN Albuterol/Ipratropium (Duoneb -) 1 amp NEB Q4H PRN PRN Reason: SHORTNESS OF BREATH Ceftriaxone Sodium (Rocephin 1gm Ivpb (Pre-Docked)) 1 gm IVPB DAILY [facility] PRN Reason: Protocol Last Admin: 04/20/17 09:29 Dose: 1 gm Sodium Chloride (Normal Saline -) 1,000 mls @ 42 mls/hr IV ASDIR [facility] Last Admin: 04/20/17 02:42 Dose: 42 mls/hr Loperamide HCl (Imodium -) 2 mg PO Q4H PRN PRN Reason: DIARRHEA Last Admin: 04/19/17 14:35 Dose: 2 mg Loperamide HCl (Imodium -) 2 mg PO Q6H PRN PRN Reason: DIARRHEA Metronidazole (Flagyl -) 500 mg PO TID [facility] Last Admin: 04/20/17 06:19 Dose: 500 mg Ondansetron HCl (Zofran Injection) 4 mg IVPB Q4H PRN PRN Reason: NAUSEA AND/OR VOMITING Last Admin: 04/20/17 10:32 Dose: 4 mg Ondansetron HCl (Zofran Injection) 4 mg IVPB Q6H PRN PRN Reason: NAUSEA AND/OR VOMITING Pantoprazole Sodium (Protonix 40mg Ivpb (Pre-Docked)) 40 mg IVPB DAILY [facility] Last Admin: 04/20/17 11:16 Dose: 40 mg Vital Signs - 24 hr 04/19/17 04/19/17 04/19/17 15:00 18:37 22:00 Temperature 98 F 97.6 F 98.3 F Pulse Rate 100 H 106 H 92 H Respiratory 18 18 18 Rate Blood Pressure 114/58 111/62 128/61 O2 Sat by Pulse 95 Oximetry (%) 04/20/17 04/20/17 04/20/17 07:00 09:21 09:38 Temperature 98.1 F 99.2 F Pulse Rate 102 H 127 H Respiratory 18 28 H Rate Blood Pressure 106/40 110/50 O2 Sat by Pulse 94 L Oximetry (%) 04/20/17 11:53 Temperature Pulse Rate 124 H Respiratory 28 H Rate Blood Pressure 104/59 O2 Sat by Pulse Oximetry (%) Intake & Output 04/18/17 04/19/17 04/20/17 04/21/17 07:59 07:59 07:59 07:59 Intake Total 2950 2184 2504 200 Output Total 2 1 350 Balance 2948 2183 2154 200 nad, calm jvd flat, neck supple diffuse rales, nl effort tachycardic, regular nl s1, s2 soft 2/6 murmur at sternal border + bs soft nt nd ext without e/c/c + dp/pt aaox3 no jaundice, diaphoresis CBC, BMP 04/19/17 06:40 04/19/17 06:40 Laboratory Tests 04/20/17 04/20/17 10:40 11:00 ABG pH 7.46 H ABG pCO2 at Pt Temp 41.4 ABG pO2 at Pt Temp 65.8 L Creatine Kinase 12 L EKG: st with pac. no ischemic changes chest CT: decreased size of rt perihilar mass. extensive rul bronchictasis with possible cavitary consolidation patchy LLL consolidation. small mediastinal l. nodes. possible colitis. + compression fractures 72 yo male with h/o lung adenocarcinoma s/p resection chemo and XRT, copd, cholelithiasis, fatty liver who presents with nausea/vomiting. Hospital course complicated by tachycardia. tachycardia - EKG sinus. Would treat underlying clincial conditions. Currently with increasing respiratory rate and oxygen requirement (although appears comfortable ). Have uptitrated oxygen flow. Ongoing mgm't of pulmonary disease per pmd/ pulm. remains afebrile. ID following as well. - also with recent n/v/d. may have component of dehydration. orthostatic vitals and adjust IVF rate as needed. - mgm't of abdominal discomfort and possible underlying GI illness per pmd/GI c/ s. pain control. - patient with recent elevated heart rates as well. Had recent echo for further evaluation. Daughter to get copy of report.
--- NOTE | 2017-04-20 14:30 | CON.GI ---
Consult Consult Specialty:: Gastroenterology - History of Present Illness History of Present Illness: 72 y/o male with PMH of stage lung and head and neck cancer diagnosed 2015 was doing well until 5 days ago when he developed moderate marvin pain associated with nausea and vomiting. He was also noted to have cholelithiasis. At present he was noted to have multiple lung lesions associated with pneumonia. Patient continue to have intermittent ruq pain and nausea - Past Medical History [employer]: No: Alzheimer's Cardio/Vascular: No: AFIB Pulmonary: Yes: Cancer (ADENOCARCINOMA), COPD, O2 Dependent, Pneumonia Gastrointestinal: Yes: Other (gallstones). No: Cancer Hepatobiliary: Yes: Cholelithiasis, Other (fatty liver) Renal/: No: Renal Failure Infectious Disease: No: AIDS Psych: No: Addictions Musculoskeletal: No: Chronic low back pain Rheumatology: No: Fibromyalgia ENT: Yes: Other (cataract sx) - Past Surgical History Past Surgical History: Yes: Hernia Repair - Alcohol/Substance Use Hx Alcohol Use: No History of Substance Use: reports: None - Smoking History Smoking history: Former smoker Have you smoked in the past 12 months: No Aproximately how many cigarettes per day: 10 If you are a former smoker, when did you quit?: APRIL 2015 - Social History ADL: Independent History of Recent Travel: No Home Medications - Allergies Allergies/Adverse Reactions: Allergies Allergy/AdvReac Type Severity Reaction Status Date / Time No Known Drug Allergies Allergy Verified 04/16/17 12:24 - Home Medications Home Medications: Ambulatory Orders Pantoprazole Sodium [Protonix -] 40 mg PO BID 11/23/15 Aspirin [ASA -] 81 mg PO DAILY 04/16/17 Atorvastatin Ca [Lipitor] 5 mg PO HS 04/16/17 Metronidazole [Flagyl -] 500 mg PO BID 04/16/17 Multivitamins [Tab-A-Vit -] 1 tab PO DAILY 04/16/17 Prednisone 10 mg PO BID 04/16/17 Physical Exam-GI Vital Signs: Vital Signs Temperature 98.2 F 04/20/17 12:53 Pulse Rate 118 H 04/20/17 12:53 Respiratory Rate 28 H 04/20/17 12:53 Blood Pressure 109/57 04/20/17 12:53 O2 Sat by Pulse Oximetry (%) 94 L 04/20/17 09:38 Constitutional: Yes: Well Nourished Eyes: Yes: Conjunctiva Clear HENT: Yes: Atraumatic Neck: Yes: Supple Cardiovascular: Yes: Regular Rate and Rhythm Respiratory: Yes: CTA Bilaterally ...Palpate: Yes: Soft. No: Firm/Rigid, Guarding, Hepatomegaly, Mass, Pulsatile Mass, Splenomegaly, Tenderness Labs: CBC, BMP 04/19/17 06:40 04/19/17 06:40 INR, PTT INR 1.60 (0.82-1.09) H 04/17/17 06:30 Problem List - Problems (1) RUQ abdominal pain Assessment/Plan: r/o secondary to biliary colic, cholecystitis and parapneumonic process R>HIDa scan with EF add Zofran and Reglan continue antibiotics for pneumonia Code(s): R10.11 - RIGHT UPPER QUADRANT PAIN
[2017-04-20] MEDS ORDERED: METOCLOPRAMIDE HCL INJECTION 10 MG/2 ML VIAL IVPB SCH (15:45)
[2017-04-20] MEDS ORDERED: ONDANSETRON 4 MG/2 ML VIAL IVPB SCH (15:45)
--- NOTE | 2017-04-20 17:11 | PN ---
Progress Note, Physician History of Present Illness: Reports feeling better No further RUQ pain Occasional cough, blood streaked sputum No c/o fever/ chills WBC improved - Current Medication List Current Medications: Active Medications Acetaminophen (Tylenol -) 650 mg PO Q4H PRN PRN Reason: FEVER OR PAIN Albuterol/Ipratropium (Duoneb -) 1 amp NEB Q4H PRN PRN Reason: SHORTNESS OF BREATH Ceftriaxone Sodium (Rocephin 1gm Ivpb (Pre-Docked)) 1 gm IVPB DAILY [facility] PRN Reason: Protocol Last Admin: 04/20/17 09:29 Dose: 1 gm Sodium Chloride (Normal Saline -) 1,000 mls @ 42 mls/hr IV ASDIR [facility] Last Admin: 04/20/17 10:45 Dose: Not Given Loperamide HCl (Imodium -) 2 mg PO Q4H PRN PRN Reason: DIARRHEA Last Admin: 04/19/17 14:35 Dose: 2 mg Loperamide HCl (Imodium -) 2 mg PO Q6H PRN PRN Reason: DIARRHEA Metoclopramide HCl (Reglan Injection -) 10 mg IVPB Q8H [facility] Metronidazole (Flagyl -) 500 mg PO TID [facility] Last Admin: 04/20/17 14:58 Dose: 500 mg Ondansetron HCl (Zofran Injection) 4 mg IVPB Q4H [facility] Stop: 04/21/17 03:46 Ondansetron HCl (Zofran Injection) 4 mg IVPB Q4H PRN PRN Reason: NAUSEA AND/OR VOMITING Pantoprazole Sodium (Protonix 40mg Ivpb (Pre-Docked)) 40 mg IVPB DAILY [facility] Last Admin: 04/20/17 11:16 Dose: 40 mg - Objective Vital Signs: Vital Signs Temperature 98.2 F 04/20/17 12:53 Pulse Rate 118 H 04/20/17 12:53 Respiratory Rate 28 H 04/20/17 12:53 Blood Pressure 109/57 04/20/17 12:53 O2 Sat by Pulse Oximetry (%) 94 L 04/20/17 09:38 Constitutional: Yes: No Distress Eyes: Yes: Conjunctiva Clear Cardiovascular: Yes: Regular Rate and Rhythm, S1, S2 Respiratory: Yes: Rhonchi Gastrointestinal: Yes: Normal Bowel Sounds, Soft. No: Tenderness Peripheral Pulses WNL: No Labs: CBC, BMP 04/19/17 06:40 04/19/17 06:40 INR, PTT INR 1.60 (0.82-1.09) H 04/17/17 06:30 Assessment/Plan R pneumonia Possible recurrence, lung ca Leukocytosis- improved Possible biliary colic Continue empiric ceftriaxone/ flagyl
[2017-04-20] MEDS: ONDANSETRON 4 MG/2 ML VIAL IVPB SCH ×2 (18:56→22:15)
[2017-04-20] MEDS: METOCLOPRAMIDE HCL INJECTION 10 MG/2 ML VIAL IVPB SCH ×2 (19:47→23:23)
[2017-04-21] MEDS: SODIUM CHLORIDE 1,000 ML IV SCH ×3 (01:52→22:30)
[2017-04-21] MEDS: ONDANSETRON 4 MG/2 ML VIAL IVPB SCH ×2 (02:29→07:34)
[2017-04-21] MEDS ORDERED: ONDANSETRON 4 MG/2 ML VIAL IVPB PRN (03:47)
[2017-04-21] MEDS ORDERED: SODIUM CHLORIDE 250 ML IV ONE (05:15)
[2017-04-21] MEDS ORDERED: ENOXAPARIN NA (PORCINE) 40 MG/0.4 ML DISP.SYRIN SQ SCH (05:15)
[2017-04-21 05:33] LABS: ARTERIAL BLD GAS O2 SATURATION 96.1 % (90-98.9); ARTERIAL BLOOD GAS BASE EXCESS 5.1 meq/l (-2-2); ARTERIAL BLOOD GAS HCO3 30.4 meq/L (22-26); ARTERIAL BLOOD GAS PO2 79.4 mmHg (70-100)
[2017-04-21 05:34] LABS: ALLENS TEST POSITIVE; ART PUNCT SITE RIGHT RADIAL; LPM/O2% 5LPM; PT. ON O2? YES; TYPE OF O2 N/C
[2017-04-21] MEDS: METOCLOPRAMIDE HCL INJECTION 10 MG/2 ML VIAL IVPB SCH ×3 (06:01→22:30)
[2017-04-21] MEDS: metroNIDAZOLE 250 MG TABLET PO SCH ×4 (06:01→22:30)
[2017-04-21] MEDS: ALBUTEROL SO4 2.5/IPRATROPIUM 0.5 INH SOL 3 ML VIAL.NEB. NEB PRN ×2 (06:50→17:03)
[2017-04-21 07:43] LABS: BASOPHIL 0.2 % (0-2.0); EOSINOPHIL 1.2 % (0-4.5); MCHC 33.3 g/dl (32.0-35.9); MEAN CELL VOLUME 83.9 fl (80-96); MEAN PLT VOLUME 7.9 fl (7.5-11.1); NEUTROPHILS 88.1 % (42.8-82.8); PLATELET COUNT 136 K/MM3 (134-434); RDW 16.4 % (11.9-15.9)
[2017-04-21 07:59] LABS: CALCIUM 7.5 mg/dL (8.5-10.1); COCKROFT - GAULT 91.66; CREATININE 0.7 mg/dL (0.7-1.3); MAGNESIUM 1.3 mg/dL (1.8-2.4)
[2017-04-21] MEDS: cefTRIAXone 1 GM/50 ML BAG (PRE-DOCKED) IVPB SCH (10:08)
[2017-04-21] MEDS: ENOXAPARIN NA (PORCINE) 60 MG/0.6 ML DISP.SYRIN SQ SCH ×2 (10:12→22:30)
--- NOTE | 2017-04-21 10:29 | PN ---
Progress Note (short form) - Note Progress Note: s: feeling a little better today, less cough/sob. no cp palps dizzy o: Vital Signs Period Temp Pulse Resp BP Sys/Kapoor Pulse Ox Last 24 Hr 98 F-100.8 F 93-124 14-28 83-111/30-78 94 nad, calm jvd flat diffuse rhonchi, nl effort rrr, nl s1, s2 soft 2/6 murmur at sternal border + bs soft nt nd ext without e/c/c aaox3 no jaundice, diaphoresis Current Medications Generic Name Dose Route Start Last Admin Trade Name Freq PRN Reason Stop Dose Admin Acetaminophen 650 mg 04/16/17 23:26 04/20/17 23:27 Tylenol - PO 650 mg Q4H PRN Administration FEVER OR PAIN Albuterol/Ipratropium 1 amp 04/20/17 11:30 04/21/17 06:50 Duoneb - NEB 1 amp Q4H PRN Administration SHORTNESS OF BREATH Ceftriaxone Sodium 1 gm 04/19/17 16:15 04/21/17 10:08 Rocephin 1gm Ivpb (Pre-Docked) IVPB 1 gm DAILY AD[facility] Administration Protocol Enoxaparin Sodium 60 mg 04/21/17 10:00 04/21/17 10:12 Lovenox - SQ 60 mg BID ADAN Administration Sodium Chloride 1,000 mls @ 100 mls/hr 04/20/17 23:00 04/21/17 10:11 Normal Saline - IV 100 mls/hr ASDIR [facility] Administration Loperamide HCl 2 mg 04/19/17 11:56 04/19/17 14:35 Imodium - PO 2 mg Q4H PRN Administration DIARRHEA Loperamide HCl 2 mg 04/19/17 11:57 Imodium - PO Q6H PRN DIARRHEA Metoclopramide HCl 10 mg 04/20/17 19:45 04/21/17 06:01 Reglan Injection - IVPB 10 mg TID AD[facility] Administration Metronidazole 500 mg 04/19/17 22:00 04/21/17 06:15 Flagyl - PO 500 mg TID [facility] Administration Ondansetron HCl 4 mg 04/21/17 03:47 Zofran Injection IVPB Q4H PRN NAUSEA AND/OR VOMITING Pantoprazole Sodium 40 mg 04/17/17 10:00 04/20/17 11:16 Protonix 40mg Ivpb (Pre-Docked) IVPB 40 mg DAILY [facility] Administration CBC, BMP 04/21/17 06:52 04/21/17 06:52 a/p: 72 yo male with h/o lung adenocarcinoma s/p resection chemo and XRT, copd , cholelithiasis, fatty liver who presents with nausea/vomiting. Hospital course complicated by tachycardia. tachycardia: -sinus tachy, improved. likely 2/2 underlying infection -cont to tx pna/sepsis with abx/ivfs -check echo hypotension, sepsis: -cont ivfs, abx -bp a little better this AM copd: -no wheezing -pulm following
--- NOTE | 2017-04-21 11:09 | PN ---
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 CT ABD REVIEWED ?RIGHT SIDED COLITIS/COMP FX SPINE ?PATHOLOGIC PATIENT'S LAST REPORTED MRI/PET WAS AT [facility] IN [place] I WAS TOLD BY DAUGHTER THAT IT WAS NEGATIVE I ASKED HER TO FAX COPY ADENOCARCINOMA RIGHT LUNG DXED IN AUG 2015 VIA NEEDLE BX/ RXED WITH RT/CHEMO SQUAMOUS CELL CA EPIGLOTTIS DXED IN AUG 2015 VIA NEEDLE BX RXED WITH RT CHEMO RIGHT VC PARALYSIS PER DAUGHTER WOULD CONTINUE ANTIBIOTICS FOR NOW TAPER STEROIDS SUGGEST SWALLOW EVAL I HAVE SPOKEN TO PTS DAUGHTER AND SHE WILL BRING ALL RECORDS I HAVE ORDERED A SWALLOW EVAL TO R/O ASPIRATION I HAVE SPOKEN TO DR MONTANEZ REGARDING CT CHEST FINDINGS, POSSIBLE PROGRESSION OF NEOPLASTIC DISEASE IS LIKELY. Nacho GARCIA MD Problem List - Problems (1) COPD (chronic obstructive pulmonary disease) Code(s): J44.9 - CHRONIC OBSTRUCTIVE PULMONARY DISEASE, UNSPECIFIED (2) Hx of gallstones Code(s): Z87.19 - PERSONAL HISTORY OF OTHER DISEASES OF THE DIGESTIVE SYSTEM (3) Lung neoplasm Code(s): D49.1 - NEOPLASM OF UNSPECIFIED BEHAVIOR OF RESPIRATORY SYSTEM
[2017-04-21] MEDS: PANTOPRAZOLE SODIUM 40 MG/100 ML PRE-DOCKED IVPB SCH (11:52)
[2017-04-21] MEDS ORDERED: MAGNESIUM SULF 50% (8.12 MEQ/2 ML-1 GM VIAL) IVPB ONE (12:00)
--- NOTE | 2017-04-21 13:07 | CONSULT ---
Admitting History and Physical - Primary Care Physician PCP: Bernardino Ybarra - Admission History of Present Illness: Patient is a 72 year old male with significant medical hx of anemia, throat and lung adenocarcinoma s/p resection, s/p chemotherapy and radiation treatment, and emphysema who is presenting to the ED with three days of increasing shortness of breath and RUQ pain. Pt had several episodes of vomiting prior to admission. 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" Selected Entries 04/19/17 04/19/17 04/19/17 06:49 09:59 15:00 Breakfast Lunch Supper Temperature 97.5 F L 97.6 F 98 F 04/19/17 04/19/17 04/20/17 18:37 22:00 07:00 Breakfast Lunch Supper Temperature 97.6 F 98.3 F 98.1 F 04/20/17 04/20/17 04/20/17 09:21 10:00 12:53 Breakfast 25% Lunch Supper Temperature 99.2 F 98.2 F 04/20/17 04/20/17 04/20/17 14:00 18:00 22:01 Breakfast Lunch 75% Supper 50% Temperature 98 F 100.8 F H 04/21/17 04/21/17 04:24 10:40 Breakfast Lunch Supper Temperature 98 F 98.2 F Laboratory Tests 04/17/17 04/18/17 04/19/17 06:30 06:15 06:40 WBC 10.3 H 11.3 H 10.4 H 04/21/17 06:52 WBC 7.0 D Progression of CA? r/o aspiration Pneumonia? 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 No: Cancer Hepatobiliary: Yes: Cholelithiasis, Other (fatty liver) Renal/: No: Renal Failure Heme/Onc: Yes: Anemia Infectious Disease: No: AIDS Psych: No: Addictions Musculoskeletal: No: Chronic low back pain Rheumatology: No: Fibromyalgia ENT: Yes: Other (cataract sx) - Past Surgical History Past Surgical History: Yes: Hernia Repair - Smoking History Smoking history: Former smoker Have you smoked in the past 12 months: No Aproximately how many cigarettes per day: 10 If you are a former smoker, when did you quit?: APRIL 2015 - Alcohol/Substance Use Hx Alcohol Use: No History of Substance Use: reports: None - Social History ADL: Independent History of Recent Travel: No History - Admission Reason For Visit: PNEUMONIA - Diagnostics CT Scan: Report Reviewed (Per Pulmonary-PROGRESSION OF INFILTRATES/NODULES AND MULTIPLE MASS LIKE CONSOLIDATIONS CONCERNING FOR PROGRESSION OF UNDERLYING NEOPLASTIC DISEASE) - General Mental Status: Alert and Oriented, Awake and Alert, Able to Follow Commands Attention: Intact Ability to Follow Directions: Excellent Head/Neck Control: WFL - Hearing Hearing: Normal Hearing Aide: No With Patient: No Speech Evaluation - Communication Primary Language: POLISH Oral Expression Ability: Yes: Mild Impairment - Speech Production Able to Make Needs Known: Yes: Mildly Impaired Intelligibility: Yes: Mildly Impaired - Speech Characteristics Voice Loudness: Normal Voice Pitch: Yes: Normal Voice Phonatory-based Quality: Yes: Harsh Speech Pattern: Impaired Speech Clarity: < 75% Nasal Resonance: Normal Articulation: Yes: Precise Rate of Speech: Intact - Language/Auditory Comprehension Follows: Yes: 2 Stage Simple Commands - Language/Verbal Expression Able to Respond to Simple Queries: Yes: WNL Able to Communicate Wants and Needs: Yes: WNL Functional Communication Status: Yes: WNL - Memory/Perception oil heaterman Memory: Yes: WNL Short Term Memory: Yes: WNL - Swallow Evaluation/Bedside Assessment Current Nutritional Intake: Regular, Thin Liquids Oral Secretions: Yes: WFL (c/o phlegm production and frequent cough.) Dentition: Yes: Dental Appliance Upper, Dental Appliance Lower Facial Symmetry at Rest: Symmetrical Facial Symmetry on Retraction: Symmetrical Facial Movement: Controlled Sensation: Normal Against Resistance Opening: Normal Against Resistance Closing: Normal Pucker Lips: Normal Smile: Normal Lingual Movement: Normal, Symmetric Lingual Speed of Movement: Normal Lingual Movement Strgth Against Opposition: Normal Lingual Movement Characteristics: Normal Soft Palate Description: Normal Color, Normal Symmetry Hard Palate Description: Normal Color, Normal Symmetry Velopharyngeal Movement: Normal Laryngeal Movement: Able to Palpate Rate of Intake: WFL Bolus Size: WFL Labial Seal: WFL Chewing: WFL Oral Prep Time: WFL A-P Transit: WFL Pocketing: None Timing of Swallow: WFL Coughing/Throat Clear: Yes Change in Voice: Yes (vocal wetness with continuous drinking) Recommendations - Speech Evaluation, Impression/Plan Impression: Harsh voice x 12 months. Coughs on thin liquids "if he is not careful.". Strong suspicion for aspiration pneumonia. - Dysphagia Impressions/Plan Swallowing Skills: Impaired Dysphagia Impressions: Ongoing Evaluation, Suspect Aspiration *Silent aspiration: cannot be R/O at bedside Dysphagia Treatment Plan: Chin Tuck/Down, Safe Rate, Elevate HOB during feed Recommendations: MBS w Esophagus - Recommendations Diet Consistency: Regular Liquids: Doral Thick Supplement: Other (Ensure compact, Magic cup)
--- NOTE | 2017-04-21 13:09 | PN ---
Progress Note, Physician - Current Medication List Current Medications: Active Medications Acetaminophen (Tylenol -) 650 mg PO Q4H PRN PRN Reason: FEVER OR PAIN Last Admin: 04/20/17 23:27 Dose: 650 mg Albuterol/Ipratropium (Duoneb -) 1 amp NEB Q4H PRN PRN Reason: SHORTNESS OF BREATH Last Admin: 04/21/17 06:50 Dose: 1 amp Ceftriaxone Sodium (Rocephin 1gm Ivpb (Pre-Docked)) 1 gm IVPB DAILY [facility] PRN Reason: Protocol Last Admin: 04/21/17 10:08 Dose: 1 gm Enoxaparin Sodium (Lovenox -) 60 mg SQ BID [facility] Last Admin: 04/21/17 10:12 Dose: 60 mg Sodium Chloride (Normal Saline -) 1,000 mls @ 100 mls/hr IV ASDIR [facility] Last Admin: 04/21/17 10:11 Dose: 100 mls/hr Loperamide HCl (Imodium -) 2 mg PO Q4H PRN PRN Reason: DIARRHEA Last Admin: 04/19/17 14:35 Dose: 2 mg Loperamide HCl (Imodium -) 2 mg PO Q6H PRN PRN Reason: DIARRHEA Metoclopramide HCl (Reglan Injection -) 10 mg IVPB TID [facility] Last Admin: 04/21/17 06:01 Dose: 10 mg Metronidazole (Flagyl -) 500 mg PO TID [facility] Last Admin: 04/21/17 06:15 Dose: 500 mg Ondansetron HCl (Zofran Injection) 4 mg IVPB Q4H PRN PRN Reason: NAUSEA AND/OR VOMITING Pantoprazole Sodium (Protonix 40mg Ivpb (Pre-Docked)) 40 mg IVPB DAILY [facility] Last Admin: 04/21/17 11:52 Dose: 40 mg - Objective Vital Signs: Vital Signs Temperature 98.2 F 04/21/17 10:40 Pulse Rate 102 H 04/21/17 10:40 Respiratory Rate 16 04/21/17 10:40 Blood Pressure 94/56 04/21/17 10:40 O2 Sat by Pulse Oximetry (%) 94 L 04/20/17 21:00 Labs: CBC, BMP 04/21/17 06:52 04/21/17 06:52 INR, PTT INR 1.60 (0.82-1.09) H 04/17/17 06:30 Assessment/Plan pt with temp labored breathing last night bp low also plan d dimer [address] neg foe pe leuvonox given abgs consistent with copd bp better watch fluids no to put pt in failure cont tx as is card appreciated hida scan in am now
--- NOTE | 2017-04-21 21:00 | PN ---
Progress Note, Physician History of Present Illness: Awake, alert Reports occasional cough with yellow sputum No c/o chest pain/ dyspnea RUQ pain resolved - Current Medication List Current Medications: Active Medications Acetaminophen (Tylenol -) 650 mg PO Q4H PRN PRN Reason: FEVER OR PAIN Last Admin: 04/20/17 23:27 Dose: 650 mg Albuterol/Ipratropium (Duoneb -) 1 amp NEB Q4H PRN PRN Reason: SHORTNESS OF BREATH Last Admin: 04/21/17 17:03 Dose: 1 amp Ceftriaxone Sodium (Rocephin 1gm Ivpb (Pre-Docked)) 1 gm IVPB DAILY [facility] PRN Reason: Protocol Last Admin: 04/21/17 10:08 Dose: 1 gm Enoxaparin Sodium (Lovenox -) 60 mg SQ BID [facility] Last Admin: 04/21/17 10:12 Dose: 60 mg Sodium Chloride (Normal Saline -) 1,000 mls @ 100 mls/hr IV ASDIR [facility] Last Admin: 04/21/17 10:11 Dose: 100 mls/hr Loperamide HCl (Imodium -) 2 mg PO Q4H PRN PRN Reason: DIARRHEA Last Admin: 04/19/17 14:35 Dose: 2 mg Loperamide HCl (Imodium -) 2 mg PO Q6H PRN PRN Reason: DIARRHEA Metoclopramide HCl (Reglan Injection -) 10 mg IVPB TID [facility] Last Admin: 04/21/17 14:44 Dose: 10 mg Metronidazole (Flagyl -) 500 mg PO TID [facility] Last Admin: 04/21/17 14:41 Dose: 500 mg Ondansetron HCl (Zofran Injection) 4 mg IVPB Q4H PRN PRN Reason: NAUSEA AND/OR VOMITING Pantoprazole Sodium (Protonix 40mg Ivpb (Pre-Docked)) 40 mg IVPB DAILY [facility] Last Admin: 04/21/17 11:52 Dose: 40 mg - Objective Vital Signs: Vital Signs Temperature 98.5 F 04/21/17 19:00 Pulse Rate 107 H 04/21/17 20:51 Respiratory Rate 18 04/21/17 20:51 Blood Pressure 97/43 04/21/17 20:51 O2 Sat by Pulse Oximetry (%) 90 L 04/21/17 09:00 Constitutional: Yes: No Distress Eyes: Yes: Conjunctiva Clear Cardiovascular: Yes: Regular Rate and Rhythm, S1, S2 Respiratory: Yes: Other (coarse rhonchi bilaterally) Gastrointestinal: Yes: Normal Bowel Sounds, Soft Edema: No Labs: CBC, BMP 04/21/17 06:52 04/21/17 06:52 INR, PTT INR 1.60 (0.82-1.09) H 04/17/17 06:30 Assessment/Plan R pneumonia Possible recurrence, lung ca Leukocytosis- resolved Possible biliary colic Continue empiric ceftriaxone/ flagyl
[2017-04-22] MEDS: metroNIDAZOLE 250 MG TABLET PO SCH ×3 (06:38→22:31)
[2017-04-22] MEDS: METOCLOPRAMIDE HCL INJECTION 10 MG/2 ML VIAL IVPB SCH ×2 (06:39→14:20)
[2017-04-22 08:14] LABS: BASOPHIL 0.2 % (0-2.0); MCH 27.7 pg (25.7-33.7); MCHC 32.4 g/dl (32.0-35.9); MEAN CELL VOLUME 85.5 fl (80-96); MEAN PLT VOLUME 7.7 fl (7.5-11.1); NEUTROPHILS 82.5 % (42.8-82.8); PLATELET COUNT 141 K/MM3 (134-434); RDW 16.9 % (11.9-15.9); WHITE BLOOD COUNT 5.7 K/mm3 (4.0-10.0)
[2017-04-22 08:32] LABS: CALCIUM 7.7 mg/dL (8.5-10.1); COCKROFT - GAULT 95.25; CREATININE 0.7 mg/dL (0.7-1.3); MAGNESIUM 1.7 mg/dL (1.8-2.4)
--- NOTE | 2017-04-22 09:30 | PN ---
Progress Note, Physician - Current Medication List Current Medications: Active Medications Acetaminophen (Tylenol -) 650 mg PO Q4H PRN PRN Reason: FEVER OR PAIN Last Admin: 04/20/17 23:27 Dose: 650 mg Albuterol/Ipratropium (Duoneb -) 1 amp NEB Q4H PRN PRN Reason: SHORTNESS OF BREATH Last Admin: 04/21/17 17:03 Dose: 1 amp Budesonide/Formoterol Fumarate (Symbicort 160/4.5mcg -) 2 puff IH BID [facility] Ceftriaxone Sodium (Rocephin 1gm Ivpb (Pre-Docked)) 1 gm IVPB DAILY [facility] PRN Reason: Protocol Last Admin: 04/21/17 10:08 Dose: 1 gm Enoxaparin Sodium (Lovenox -) 60 mg SQ BID [facility] Last Admin: 04/21/17 22:30 Dose: 60 mg Sodium Chloride (Normal Saline -) 1,000 mls @ 100 mls/hr IV ASDIR [facility] Last Admin: 04/21/17 22:30 Dose: 100 mls/hr Loperamide HCl (Imodium -) 2 mg PO Q4H PRN PRN Reason: DIARRHEA Last Admin: 04/19/17 14:35 Dose: 2 mg Loperamide HCl (Imodium -) 2 mg PO Q6H PRN PRN Reason: DIARRHEA Magnesium Sulfate (Magnesium Sulfate) 2 gm IVPB ONCE ONE Stop: 04/22/17 09:24 Metoclopramide HCl (Reglan Injection -) 10 mg IVPB TID [facility] Last Admin: 04/22/17 06:39 Dose: 10 mg Metronidazole (Flagyl -) 500 mg PO TID [facility] Last Admin: 04/22/17 06:38 Dose: 500 mg Ondansetron HCl (Zofran Injection) 4 mg IVPB Q4H PRN PRN Reason: NAUSEA AND/OR VOMITING Pantoprazole Sodium (Protonix 40mg Ivpb (Pre-Docked)) 40 mg IVPB DAILY [facility] Last Admin: 04/21/17 11:52 Dose: 40 mg - Objective Vital Signs: Vital Signs Temperature 98.9 F 04/22/17 02:26 Pulse Rate 117 H 04/22/17 02:26 Respiratory Rate 18 04/22/17 02:26 Blood Pressure 103/56 04/22/17 02:26 O2 Sat by Pulse Oximetry (%) 94 L 04/21/17 21:00 Labs: CBC, BMP 04/22/17 07:00 04/22/17 07:30 INR, PTT INR 1.60 (0.82-1.09) H 04/17/17 06:30 Assessment/Plan pt remains low bp despite ok echo results no temp no complaints wbc nl no diarrea dry mouth hida scan pnd today laba ics given biotin mouthwasch card f/u
[2017-04-22] MEDS ORDERED: MAGNESIUM SULF 50% (8.12 MEQ/2 ML-1 GM VIAL) IVPB ONE (10:15)
[2017-04-22] MEDS ORDERED: PT OWN MED DRAWER 7, Y5N ONE ×2 (10:25→22:04)
--- NOTE | 2017-04-22 10:49 | PN ---
Progress Note, DATA LIBRARIAN - Note Progress Note: I contacted Dr. Ybarra and recommended Hanahan thick liquid and MBS today. Orders placed.
--- NOTE | 2017-04-22 10:54 | PN ---
Progress Note, Physician History of Present Illness: Awake, responsive C/O cough productive of greenish sputum No hemoptysis Low grade fever WBC WNL - Current Medication List Current Medications: Active Medications Acetaminophen (Tylenol -) 650 mg PO Q4H PRN PRN Reason: FEVER OR PAIN Last Admin: 04/20/17 23:27 Dose: 650 mg Albuterol/Ipratropium (Duoneb -) 1 amp NEB Q4H PRN PRN Reason: SHORTNESS OF BREATH Last Admin: 04/21/17 17:03 Dose: 1 amp Budesonide/Formoterol Fumarate (Symbicort 160/4.5mcg -) 2 puff IH BID [facility] Ceftriaxone Sodium (Rocephin 1gm Ivpb (Pre-Docked)) 1 gm IVPB DAILY [facility] PRN Reason: Protocol Last Admin: 04/21/17 10:08 Dose: 1 gm Enoxaparin Sodium (Lovenox -) 60 mg SQ BID [facility] Last Admin: 04/21/17 22:30 Dose: 60 mg Sodium Chloride (Normal Saline -) 1,000 mls @ 100 mls/hr IV ASDIR [facility] Last Admin: 04/21/17 22:30 Dose: 100 mls/hr Loperamide HCl (Imodium -) 2 mg PO Q4H PRN PRN Reason: DIARRHEA Last Admin: 04/19/17 14:35 Dose: 2 mg Loperamide HCl (Imodium -) 2 mg PO Q6H PRN PRN Reason: DIARRHEA Metoclopramide HCl (Reglan Injection -) 10 mg IVPB TID [facility] Last Admin: 04/22/17 06:39 Dose: 10 mg Metronidazole (Flagyl -) 500 mg PO TID [facility] Last Admin: 04/22/17 06:38 Dose: 500 mg Ondansetron HCl (Zofran Injection) 4 mg IVPB Q4H PRN PRN Reason: NAUSEA AND/OR VOMITING Pantoprazole Sodium (Protonix 40mg Ivpb (Pre-Docked)) 40 mg IVPB DAILY [facility] Last Admin: 04/21/17 11:52 Dose: 40 mg Saliva Substitute (Mouthkote Solution -) 1 applic MM DAILY [facility] - Objective Vital Signs: Vital Signs Temperature 98.9 F 04/22/17 02:26 Pulse Rate 117 H 04/22/17 02:26 Respiratory Rate 18 04/22/17 02:26 Blood Pressure 103/56 04/22/17 02:26 O2 Sat by Pulse Oximetry (%) 94 L 04/21/17 21:00 Constitutional: Yes: No Distress Eyes: Yes: Conjunctiva Clear Cardiovascular: Yes: Regular Rate and Rhythm, S1, S2 Respiratory: Yes: CTA Bilaterally Gastrointestinal: Yes: Normal Bowel Sounds, Soft. No: Tenderness Edema: No Labs: CBC, BMP 04/22/17 07:00 04/22/17 07:30 INR, PTT INR 1.60 (0.82-1.09) H 04/17/17 06:30 Assessment/Plan R pneumonia Possible recurrence, lung ca Leukocytosis- resolved Possible biliary colic Continue empiric ceftriaxone/ flagyl HIDA pending
[2017-04-22] MEDS: cefTRIAXone 1 GM/50 ML BAG (PRE-DOCKED) IVPB SCH (11:11)
[2017-04-22] MEDS: ENOXAPARIN NA (PORCINE) 60 MG/0.6 ML DISP.SYRIN SQ SCH ×2 (11:12→22:31)
[2017-04-22] MEDS: PANTOPRAZOLE SODIUM 40 MG/100 ML PRE-DOCKED IVPB SCH (11:12)
--- NOTE | 2017-04-22 12:01 | PN ---
Progress Note (short form) - Note Progress Note: PULMONARY Breathing improving. No fevers or chills. Cough clearing. Last Vital Signs Temp Pulse Resp BP Pulse Ox 99.4 F 119 H 18 90/55 94 L 04/22/17 10:00 04/22/17 10:00 04/22/17 10:00 04/22/17 10:00 04/21/17 21:00 Gen: less tachypneic Heart: tachycardic, regular Lung: scattered rhonchi Abd: soft, nontender Ext: no edema CBC, BMP 04/22/17 07:00 04/22/17 07:30 Active Medications Acetaminophen (Tylenol -) 650 mg PO Q4H PRN PRN Reason: FEVER OR PAIN Last Admin: 04/20/17 23:27 Dose: 650 mg Albuterol/Ipratropium (Duoneb -) 1 amp NEB Q4H PRN PRN Reason: SHORTNESS OF BREATH Last Admin: 04/21/17 17:03 Dose: 1 amp Budesonide/Formoterol Fumarate (Symbicort 160/4.5mcg -) 2 puff IH BID [facility] Ceftriaxone Sodium (Rocephin 1gm Ivpb (Pre-Docked)) 1 gm IVPB DAILY [facility] PRN Reason: Protocol Last Admin: 04/22/17 11:11 Dose: 1 gm Enoxaparin Sodium (Lovenox -) 60 mg SQ BID [facility] Last Admin: 04/22/17 11:12 Dose: 60 mg Sodium Chloride (Normal Saline -) 1,000 mls @ 100 mls/hr IV ASDIR [facility] Last Admin: 04/21/17 22:30 Dose: 100 mls/hr Loperamide HCl (Imodium -) 2 mg PO Q4H PRN PRN Reason: DIARRHEA Last Admin: 04/19/17 14:35 Dose: 2 mg Loperamide HCl (Imodium -) 2 mg PO Q6H PRN PRN Reason: DIARRHEA Metoclopramide HCl (Reglan Injection -) 10 mg IVPB TID [facility] Last Admin: 04/22/17 06:39 Dose: 10 mg Metronidazole (Flagyl -) 500 mg PO TID [facility] Last Admin: 04/22/17 06:38 Dose: 500 mg Ondansetron HCl (Zofran Injection) 4 mg IVPB Q4H PRN PRN Reason: NAUSEA AND/OR VOMITING Pantoprazole Sodium (Protonix 40mg Ivpb (Pre-Docked)) 40 mg IVPB DAILY [facility] Last Admin: 04/22/17 11:12 Dose: 40 mg Saliva Substitute (Mouthkote Solution -) 1 applic MM DAILY [facility] A/P Pneumonia r/o Colitis Lung/Laryngeal Ca s/p Chemotherapy/RT COPD/Emphysema - continue antibiotics - inhaled bronchodilators - O2 as needed - PO as tolerated - aspiration precautions - DVT prophylaxis
[2017-04-22] MEDS ORDERED: SODIUM CHLORIDE 500 ML IV STA (12:08)
[2017-04-22] MEDS: BUDESONIDE/FORMETEROL FUMARATE 160/4.5 mcg INHALER IH SCH ×2 (12:22→22:32)
[2017-04-22] MEDS: LYTES/YERBA SANTA 240 ML BOTTLE MM SCH (12:23)
--- NOTE | 2017-04-22 14:00 | CONS ---
DATE OF CONSULTATION: 04/17/2017 REFERRING PHYSICIAN: Bernardino Ybarra MD REASON FOR REFERRAL: Cholelithiasis, rule out acute cholecystitis, right upper quadrant abdominal pain. BRIEF HISTORY: This is a 72-year-old gentleman who presented to the emergency room with a 4-day history of having pain in the right upper quadrant and right lower chest. The patient describes this to be a band-like discomfort that he has had and now the pain is completely resolved. At the time of presentation, he had a white count of 14,000. All LFTs were within normal limits. His white count today is 10.1. LFTs are essentially unchanged. Patient denies a history of fever or chills. He has no history of change in stool color or urine color. PAST MEDICAL HISTORY: Significant for lung carcinoma, status post resection, chemotherapy, and radiation. He has a history of throat carcinoma as well and anemia. Other significant past medical history is significant for COPD, disorders, hypertension. PAST SURGICAL HISTORY: Abdominal hernia repair in the past. MEDICATIONS: Refer to chart. ALLERGIES: None. SOCIAL HISTORY: Patient is chronically on oxygen. He denies tobacco and alcohol use. PHYSICAL EXAMINATION: Abdomen: Barreled. It is soft, nontender, nondistended. No acute peritoneal findings. IMAGING: Ultrasound of the abdomen demonstrates findings consistent with cholelithiasis without obvious evidence of acute cholecystitis, no pericholecystic fluid, no wall thickening of the gallbladder. Early cholecystitis cannot be ruled out based on the ultrasound. IMPRESSION/PLAN: Cholelithiasis, right upper quadrant/right lower chest pain, malnutrition (albumin of 1.9 today): This is a 72-year-old gentleman admitted with a 4-day history of right-sided abdominal and chest pain. The history is consistent with cholecystitis. However, the findings are not consistent on the ultrasound. Possibilities would include biliary colic. However, typically colic is less than 6 hours. Other possibilities would include a right-sided pneumonia (patient had significant findings on his right-sided lung field on his initial chest x-ray that could explain the right upper quadrant pain) and this pain may be all referred related to his pneumonia/pneumonitis/ pulmonary issues in the right lung. At this point, the patient clinically does not appear ill and can be worked up electively. We have discussed the pros and cons of an elective cholecystectomy. However, the patient has a multitude of medical comorbidities which may prohibit elective surgery. This should be discussed and evaluated by his primary care physician and his other consultants. In summary, at this point the patient does not require any acute surgical intervention. Will be available for a laparoscopic cholecystectomy if the consultants and primary care physician feel that this is best for this gentleman given his medical comorbidities. Thank you for allowing me to participate in the care of your patient. JOSE TAMAYO M.D. [id number] cc: MD Fatoumata Olivas MD Robert DeMatteo, MD
--- NOTE | 2017-04-22 18:29 | CON.ENT ---
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 He was admitted with RUQ pain and shortness of breath that began a few days ago , and found to have consolidation in the right lung suspicious for PNA. No particular palliating or provoking factors. +cough and vomiting. Found to have issues with gallblader. GI consulted. [facility] was consulted for airway evaluation. Patient reports his voice has changed since radiation, but it has been stable over the last year or so. He feels mostly difficulty getting air into his chest. There is no pain in throat. He is about to undergo a modified barium swallow at the time of my evaluation. 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 No: Cancer Hepatobiliary: Yes: Cholelithiasis, Other (fatty liver) Renal/: No: Renal Failure Infectious Disease: No: AIDS Psych: No: Addictions Musculoskeletal: No: Chronic low back pain Rheumatology: No: Fibromyalgia ENT: Yes: Other (cataract sx) - Past Surgical History Past Surgical History: Yes: Hernia Repair - Alcohol/Substance Use Hx Alcohol Use: No History of Substance Use: reports: None - Smoking History Smoking history: Former smoker Have you smoked in the past 12 months: No Aproximately how many cigarettes per day: 10 If you are a former smoker, when did you quit?: APRIL 2015 - Social History ADL: Independent History of Recent Travel: No Home Medications - Allergies Allergies/Adverse Reactions: Allergies Allergy/AdvReac Type Severity Reaction Status Date / Time No Known Drug Allergies Allergy Verified 04/16/17 12:24 - Home Medications Home Medications: Ambulatory Orders Pantoprazole Sodium [Protonix -] 40 mg PO BID 11/23/15 Aspirin [ASA -] 81 mg PO DAILY 04/16/17 Atorvastatin Ca [Lipitor] 5 mg PO HS 04/16/17 Metronidazole [Flagyl -] 500 mg PO BID 04/16/17 Multivitamins [Tab-A-Vit -] 1 tab PO DAILY 04/16/17 Prednisone 10 mg PO BID 04/16/17 Review of Systems Unable to obtain ROS, reason: as noted in ER HPI Physical Exam-ENT Vital Signs: Vital Signs Temperature 99.4 F 04/22/17 10:00 Pulse Rate 132 H 04/22/17 10:00 Respiratory Rate 18 04/22/17 10:00 Blood Pressure 84/43 04/22/17 10:00 O2 Sat by Pulse Oximetry (%) 94 L 04/21/17 21:00 Constitutional: Yes: Well Nourished, No Distress, Other (laying completely flat in gurney awaiting transfer to exam chair for mod barium swallow, without respiratory distress or stridor.) Head: Yes: WNL Eyes: Yes: WNL Nose: Yes: Other (+n/c . B ant crusting.) Oral/Pharynx: Yes: WNL, Other (dentures.post o/p clear. BOT/TF soft. tonsils recessed) Outer Ear: Yes: WNL Ear Canal: Yes: Cerumen Tympanic Membrane: Yes: Other (not visible) Neck: Yes: Other (post radiation changes) Respiratory: Yes: Other (no stridor. husky voice. comfortable.) Neurological: Yes: WNL Imaging - Results Cat Scan: Image Reviewed Other: Other (Flex Fibertopic Laryngoscopy: expl rbla to pt. consents passed through right nasal cavity to supraglottis, withdrawn. pt withdraws twice, limits eval. Findings: 1. Post radiation changes of epiglottis which is pinched , retroflexed, and edematous. It is twisted to the left. 2. Left vocal cord paralyzed. Right vocal cord mobile with some restricted mobility. Limited direct view of vocal cords given angulation, cooperation. 3. Moderate edema of arytenoid and aryepiglottic folds. 4. 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 This is stable from his note by a colleague in 04/2016, and is most certainly from his radiation therapy. - His current deterioration is unlikely laryngeal in nature especially given the CT findings with effusion developing and ongoing right consolidation. Agree with abx for PNA. He was prescribed oxygen for home use even before this hospitalization - F/u MBS results. Likely an aspiration risk. - Adv he follow up with his technical support agent at [facility] for routine observation and airway evaluations, cancer followup. He will likely need swallow therapy. Thank you for this consultation. Please call with questions.
--- NOTE | 2017-04-22 18:38 | PN ---
Progress Note (short form) - Note Progress Note: CC: tachycardia s: feeling a little better today, less cough/sob. no cp palps dizzy. HR intermittently elevated today. Patient intermittently taking off oxygen throughout the day (off on evaluation with sat 86% RA). o: Current Medications Acetaminophen (Tylenol -) 650 mg PO Q4H PRN PRN Reason: FEVER OR PAIN Last Admin: 04/20/17 23:27 Dose: 650 mg Albuterol/Ipratropium (Duoneb -) 1 amp NEB Q4H PRN PRN Reason: SHORTNESS OF BREATH Last Admin: 04/21/17 17:03 Dose: 1 amp Budesonide/Formoterol Fumarate (Symbicort 160/4.5mcg -) 2 puff IH BID [facility] Last Admin: 04/22/17 12:22 Dose: 2 puff Ceftriaxone Sodium (Rocephin 1gm Ivpb (Pre-Docked)) 1 gm IVPB DAILY [facility] PRN Reason: Protocol Last Admin: 04/22/17 11:11 Dose: 1 gm Enoxaparin Sodium (Lovenox -) 60 mg SQ BID [facility] Last Admin: 04/22/17 11:12 Dose: 60 mg Sodium Chloride (Normal Saline -) 1,000 mls @ 100 mls/hr IV ASDIR [facility] Last Admin: 04/21/17 22:30 Dose: 100 mls/hr Loperamide HCl (Imodium -) 2 mg PO Q4H PRN PRN Reason: DIARRHEA Last Admin: 04/19/17 14:35 Dose: 2 mg Loperamide HCl (Imodium -) 2 mg PO Q6H PRN PRN Reason: DIARRHEA Metoclopramide HCl (Reglan Injection -) 10 mg IVPB TID [facility] Last Admin: 04/22/17 14:20 Dose: 10 mg Metronidazole (Flagyl -) 500 mg PO TID [facility] Last Admin: 04/22/17 14:20 Dose: 500 mg Ondansetron HCl (Zofran Injection) 4 mg IVPB Q4H PRN PRN Reason: NAUSEA AND/OR VOMITING Pantoprazole Sodium (Protonix 40mg Ivpb (Pre-Docked)) 40 mg IVPB DAILY [facility] Last Admin: 04/22/17 11:12 Dose: 40 mg Saliva Substitute (Mouthkote Solution -) 1 applic MM DAILY [facility] Last Admin: 04/22/17 12:23 Dose: 1 applic Vital Signs - 24 hr 04/21/17 04/21/17 04/21/17 19:00 20:51 21:00 Temperature 98.5 F Pulse Rate 122 H 107 H Respiratory 16 18 Rate Blood Pressure 126/40 97/43 O2 Sat by Pulse 94 L Oximetry (%) 04/21/17 04/21/17 04/22/17 21:03 21:04 02:26 Temperature 98.9 F Pulse Rate 107 H 107 H 117 H Respiratory 18 18 18 Rate Blood Pressure 89/38 97/43 103/56 O2 Sat by Pulse Oximetry (%) 04/22/17 10:00 Temperature 99.4 F Pulse Rate 132 H Respiratory 18 Rate Blood Pressure 84/43 O2 Sat by Pulse Oximetry (%) Intake & Output 04/20/17 04/21/17 04/22/17 04/23/17 07:59 07:59 07:59 07:59 Intake Total 2504 1886 1980 Output Total 350 450 Balance 2154 1886 1530 Weight 151 lb 3.2 oz nad, calm jvd flat diffuse rhonchi, nl effort rrr, nl s1, s2 soft 2/6 murmur at sternal border + bs soft nt nd ext without e/c/c aaox3 no jaundice, diaphoresis CBC, BMP 04/22/17 07:00 04/22/17 07:30 Laboratory Tests 04/22/17 07:30 Magnesium 1.7 L D EKG: st with pac. no ischemic changes echo: tds. nl lv size/fn. can't exclude rwma. RV not well seen. mild ao dilation chest CTA: no PE (limited study quality). small right sided effusion, other findings similar to chest ct above. chest CT: decreased size of rt perihilar mass. extensive rul bronchictasis with possible cavitary consolidation patchy LLL consolidation. small mediastinal l. nodes. possible colitis. + compression fractures a/p: 72 yo male with h/o lung adenocarcinoma s/p resection chemo and XRT, copd , cholelithiasis, fatty liver who presents with nausea/vomiting. Hospital course complicated by tachycardia. tachycardia: -sinus tachy, likely 2/2 underlying infection. May also have contribution from underlying hypoxia. Patient frequently removing oxygen as mentioned in hpi. -cont to tx pna/sepsis with abx/ivfs - echo tds, but without significant structural abnormalities. hypotension, sepsis: -cont ivfs, abx - GI sx's resolved per patient, IVF ongoing. copd/adenocarcinoma: -no wheezing. pulm following. - + aspiration. ent, speech and swallow, pulm, ID following. underlying pna.
[2017-04-22] MEDS ORDERED: DICYCLOMINE HCL 10 MG CAPSULE PO PRN (18:55)
[2017-04-22] MEDS: ALBUTEROL SO4 2.5/IPRATROPIUM 0.5 INH SOL 3 ML VIAL.NEB. NEB PRN (22:28)
[2017-04-22] MEDS: SODIUM CHLORIDE 1,000 ML IV SCH (22:34)
[2017-04-23] MEDS: metroNIDAZOLE 250 MG TABLET PO SCH ×3 (07:04→21:41)
[2017-04-23] MEDS: ALBUTEROL SO4 2.5/IPRATROPIUM 0.5 INH SOL 3 ML VIAL.NEB. NEB PRN ×3 (07:05→23:00)
[2017-04-23 07:10] LABS: BASOPHIL 0.3 % (0-2.0); EOSINOPHIL 2.4 % (0-4.5); MCH 28.1 pg (25.7-33.7); MCHC 33.1 g/dl (32.0-35.9); MEAN PLT VOLUME 7.3 fl (7.5-11.1); PLATELET COUNT 140 K/MM3 (134-434); RDW 16.8 % (11.9-15.9); WHITE BLOOD COUNT 4.1 K/mm3 (4.0-10.0)
[2017-04-23 07:20] LABS: CALCIUM 7.2 mg/dL (8.5-10.1); COCKROFT - GAULT 136.53; CREATININE 0.5 mg/dL (0.7-1.3); MAGNESIUM 1.7 mg/dL (1.8-2.4)
[2017-04-23] MEDS ORDERED: PT OWN MED DRAWER 7, Y5N ONE (09:05)
[2017-04-23] MEDS: ENOXAPARIN NA (PORCINE) 60 MG/0.6 ML DISP.SYRIN SQ SCH ×2 (09:08→21:41)
[2017-04-23] MEDS: cefTRIAXone 1 GM/50 ML BAG (PRE-DOCKED) IVPB SCH (09:09)
[2017-04-23] MEDS: LYTES/YERBA SANTA 240 ML BOTTLE MM SCH (09:09)
[2017-04-23] MEDS: SODIUM CHLORIDE 1,000 ML IV SCH ×2 (09:09→21:41)
[2017-04-23] MEDS: PANTOPRAZOLE SODIUM 40 MG/100 ML PRE-DOCKED IVPB SCH (09:09)
[2017-04-23] MEDS: BUDESONIDE/FORMETEROL FUMARATE 160/4.5 mcg INHALER IH SCH ×2 (10:13→21:40)
--- NOTE | 2017-04-23 11:42 | PN ---
Progress Note, [employer] - Note Progress Note: Appreciate ENT input: "Flex Fibertopic Laryngoscopy: expl rbla to pt. consents passed through right nasal cavity to supraglottis, withdrawn. pt withdraws twice, limits eval. Findings: 1. Post radiation changes of epiglottis which is pinched, retroflexed , and edematous. It is twisted to the left. 2. Left vocal cord paralyzed. Right vocal cord mobile with some restricted mobility. Limited direct view of vocal cords given angulation, cooperation. 3. Moderate edema of arytenoid and aryepiglottic folds. 4. No gross masses/lesions seen." Reviewed MBS results and rec at length with staff/patient. Written rec and illustration also provided. Most importantly, OOB for meals, Honey thick liquid on tsp, NO CUP DRINKING, chin tuck, Hold breath tight, swallow hard. Dysphagia diet/RD education regarding diet consistency restrictions. Pt demonstrated understanding. REC: out pt swallowing [place] [facility] [place]
--- NOTE | 2017-04-23 12:17 | PN ---
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
--- NOTE | 2017-04-23 12:20 | PN ---
Progress Note, Physician History of Present Illness: Feeling better Less cough/ sputum production No c/o chest pain/ dyspnea No fever/ chills RUQ abdominal pain and diarrhea resolved - Current Medication List Current Medications: Active Medications Acetaminophen (Tylenol -) 650 mg PO Q4H PRN PRN Reason: FEVER OR PAIN Last Admin: 04/20/17 23:27 Dose: 650 mg Albuterol/Ipratropium (Duoneb -) 1 amp NEB Q4H PRN PRN Reason: SHORTNESS OF BREATH Last Admin: 04/23/17 07:05 Dose: 1 amp Budesonide/Formoterol Fumarate (Symbicort 160/4.5mcg -) 2 puff IH BID [facility] BEDS AT [facility] Last Admin: 04/23/17 10:13 Dose: 2 puff Ceftriaxone Sodium (Rocephin 1gm Ivpb (Pre-Docked)) 1 gm IVPB DAILY [facility] 234 BEDS AT [facility] PRN Reason: Protocol Last Admin: 04/23/17 09:09 Dose: 1 gm Dicyclomine HCl (Bentyl -) 10 mg PO Q8H PRN PRN Reason: MUSCLE SPASMS Enoxaparin Sodium (Lovenox -) 60 mg SQ BID [facility] 234 BEDS AT [facility] Last Admin: 04/23/17 09:08 Dose: 60 mg Sodium Chloride (Normal Saline -) 1,000 mls @ 100 mls/hr IV ASDIR [facility]S [facility]CLUDE 234 BEDS AT THE [facility] Last Admin: 04/23/17 09:09 Dose: 100 mls/hr Loperamide HCl (Imodium -) 2 mg PO Q4H PRN PRN Reason: DIARRHEA Last Admin: 04/19/17 14:35 Dose: 2 mg Loperamide HCl (Imodium -) 2 mg PO Q6H PRN PRN Reason: DIARRHEA Metronidazole (Flagyl -) 500 mg PO TID [facility] 234 BEDS AT [facility] Last Admin: 04/23/17 07:04 Dose: 500 mg Ondansetron HCl (Zofran Injection) 4 mg IVPB Q4H PRN PRN Reason: NAUSEA AND/OR VOMITING Pantoprazole Sodium (Protonix 40mg Ivpb (Pre-Docked)) 40 mg IVPB DAILY [facility] 234 BEDS AT [facility] Last Admin: 04/23/17 09:09 Dose: 40 mg Saliva Substitute (Mouthkote Solution -) 1 applic MM DAILY [facility] 234 BEDS AT [facility] Last Admin: 04/23/17 09:09 Dose: 1 applic - Objective Vital Signs: Vital Signs Temperature 97.9 F 04/23/17 10:00 Pulse Rate 107 H 04/23/17 10:38 Respiratory Rate 19 04/23/17 10:00 Blood Pressure 112/57 04/23/17 10:00 O2 Sat by Pulse Oximetry (%) 90 L 04/23/17 10:38 Constitutional: Yes: No Distress Eyes: Yes: Conjunctiva Clear Cardiovascular: Yes: Regular Rate and Rhythm, S1, S2 Respiratory: Yes: Rhonchi Gastrointestinal: Yes: Normal Bowel Sounds, Soft. No: Tenderness Edema: No Labs: CBC, BMP 04/23/17 06:20 04/23/17 06:20 INR, PTT INR 1.60 (0.82-1.09) H 04/17/17 06:30 Assessment/Plan R pneumonia Possible recurrence, lung ca Leukocytosis- resolved Possible biliary colic HIDA normal Continue empiric ceftriaxone/ flagyl
--- NOTE | 2017-04-23 13:13 | PN ---
Progress Note, Physician - Current Medication List Current Medications: Active Medications Acetaminophen (Tylenol -) 650 mg PO Q4H PRN PRN Reason: FEVER OR PAIN Last Admin: 04/20/17 23:27 Dose: 650 mg Albuterol/Ipratropium (Duoneb -) 1 amp NEB Q4H PRN PRN Reason: SHORTNESS OF BREATH Last Admin: 04/23/17 07:05 Dose: 1 amp Budesonide/Formoterol Fumarate (Symbicort 160/4.5mcg -) 2 puff IH BID [facility] Last Admin: 04/23/17 10:13 Dose: 2 puff Ceftriaxone Sodium (Rocephin 1gm Ivpb (Pre-Docked)) 1 gm IVPB DAILY [facility] PRN Reason: Protocol Last Admin: 04/23/17 09:09 Dose: 1 gm Dicyclomine HCl (Bentyl -) 10 mg PO Q8H PRN PRN Reason: MUSCLE SPASMS Enoxaparin Sodium (Lovenox -) 60 mg SQ BID [facility] Last Admin: 04/23/17 09:08 Dose: 60 mg Sodium Chloride (Normal Saline -) 1,000 mls @ 100 mls/hr IV ASDIR [facility] Last Admin: 04/23/17 09:09 Dose: 100 mls/hr Loperamide HCl (Imodium -) 2 mg PO Q4H PRN PRN Reason: DIARRHEA Last Admin: 04/19/17 14:35 Dose: 2 mg Loperamide HCl (Imodium -) 2 mg PO Q6H PRN PRN Reason: DIARRHEA Metronidazole (Flagyl -) 500 mg PO TID [facility] Last Admin: 04/23/17 07:04 Dose: 500 mg Ondansetron HCl (Zofran Injection) 4 mg IVPB Q4H PRN PRN Reason: NAUSEA AND/OR VOMITING Pantoprazole Sodium (Protonix 40mg Ivpb (Pre-Docked)) 40 mg IVPB DAILY [facility] Last Admin: 04/23/17 09:09 Dose: 40 mg Saliva Substitute (Mouthkote Solution -) 1 applic MM DAILY [facility] Last Admin: 04/23/17 09:09 Dose: 1 applic - Objective Vital Signs: Vital Signs Temperature 97.9 F 04/23/17 10:00 Pulse Rate 107 H 04/23/17 10:38 Respiratory Rate 19 04/23/17 10:00 Blood Pressure 112/57 04/23/17 10:00 O2 Sat by Pulse Oximetry (%) 90 L 04/23/17 10:38 Labs: CBC, BMP 04/23/17 06:20 04/23/17 06:20 INR, PTT INR 1.60 (0.82-1.09) H 04/17/17 06:30 Assessment/Plan pt comfortable [place] [id number] // /? asperation will repeat ct chest in 2 days
--- NOTE | 2017-04-23 15:33 | CONSULT ---
Consult Consult Specialty:: Oncology-hematology Referred by:: Dr. Bernardino Ybarra Reason for Consultation:: Adenocarcinoma of lung- s/p - RT/chemotherapy. 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 No: Cancer Hepatobiliary: Yes: Cholelithiasis, Other (fatty liver) Renal/: No: Renal Failure Heme/Onc: Yes: Cancer Infectious Disease: No: AIDS Psych: No: Addictions Musculoskeletal: No: Chronic low back pain Rheumatology: No: Fibromyalgia ENT: Yes: Other (SCC of epiglottis) - Past Surgical History Past Surgical History: Yes: Hernia Repair - Alcohol/Substance Use Hx Alcohol Use: No (in past) History of Substance Use: reports: None - Smoking History Smoking history: Former smoker Have you smoked in the past 12 months: No Aproximately how many cigarettes per day: 10 (smoked 1ppd since teens until 2 years ago) If you are a former smoker, when did you quit?: APRIL 2015 - Social History ADL: Independent History of Recent Travel: No Home Medications - Allergies Allergies/Adverse Reactions: Allergies Allergy/AdvReac Type Severity Reaction Status Date / Time No Known Drug Allergies Allergy Verified 04/16/17 12:24 - Home Medications Home Medications: Ambulatory Orders Pantoprazole Sodium [Protonix -] 40 mg PO BID 11/23/15 Aspirin [ASA -] 81 mg PO DAILY 04/16/17 Atorvastatin Ca [Lipitor] 5 mg PO HS 04/16/17 Metronidazole [Flagyl -] 500 mg PO BID 04/16/17 Multivitamins [Tab-A-Vit -] 1 tab PO DAILY 04/16/17 Prednisone 10 mg PO BID 04/16/17 Family Disease History - Family Disease History Family Disease History: Other: Father (stroke), Mother (cancer ??type) Review of Systems - Review of Systems Constitutional: reports: Loss of Appetite, Weakness. denies: Fever Eyes: denies: Blurred Vision, Photophobia HENT: denies: Difficult Swallowing, Epistaxis, Nasal Congestion, Throat Pain, Ringing in Ears Neck: denies: Stiffness, Swollen Glands, Tenderness Cardiovascular: reports: Shortness of Breath. denies: Chest Pain, Palpitations Respiratory: reports: Exercise Intolerance, SOB, SOB on Exertion. denies: Hemoptysis, Wheezing Gastrointestinal: reports: Diarrhea. denies: Dysphagia, Nausea, Vomiting Genitourinary: reports: Other (nocturia x 2-3). denies: Dysuria, Flank Pain, Frequency Musculoskeletal: denies: Back Pain, Extremity Pain, Joint Pain, Muscle Weakness Integumentary: reports: No Symptoms Neurological: reports: No Symptoms Endocrine: reports: No Symptoms Hematology/Lymphatic: denies: Easily Bruised, Swollen Glands Psychiatric: reports: No Symptoms Physical Exam Vital Signs: Vital Signs Temperature 97.9 F 04/23/17 10:00 Pulse Rate 107 H 04/23/17 10:38 Respiratory Rate 19 04/23/17 10:00 Blood Pressure 112/57 04/23/17 10:00 O2 Sat by Pulse Oximetry (%) 90 L 04/23/17 10:38 Constitutional: Yes: Mild Distress Eyes: Yes: EOM Intact, PERRL. No: Diplopia, Ptosis, Sclera Icterus HENT: Yes: Atraumatic, Normocephalic, Hoarseness, Other (upper and lower dentures). No: Tonsillar Exudate Neck: Yes: Supple, Trachea Midline. No: Decreased ROM, Lymphadenopathy, Tenderness, Thyromegaly Cardiovascular: Yes: Regular Rate and Rhythm, Murmur Respiratory: Yes: Rhonchi Gastrointestinal: Yes: Normal Bowel Sounds, Soft. 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 Pulmonary infiltration /consolidation/COPD/ ?? component of infection ??component of recurrent tumor Code(s): J18.9 - PNEUMONIA, UNSPECIFIED ORGANISM Qualifiers: Laterality: right Lung location: unspecified part of lung (3) RUQ abdominal pain Assessment/Plan: Resolved; No cholecystitis Code(s): R10.11 - RIGHT UPPER QUADRANT PAIN (4) Lung neoplasm Assessment/Plan: [place] of lung diagnosed by needle biopsy in August 2015. Treated at [facility] with RT/Chemotherapy. Last PET reportedly negative for recurrence in 01/2017. Would suggest treatment of underling infiltrate with antibiotics . After maximum benefit of antibiotics, follow up with PET/CT and comparison. Might be able to discern tumor vs. inflammatory/reactive process. Further decisions thereafter per team at [facility]. Code(s): D49.1 - NEOPLASM OF UNSPECIFIED BEHAVIOR OF RESPIRATORY SYSTEM
[2017-04-23] MEDS ORDERED: MAGNESIUM SULF 50% (8.12 MEQ/2 ML-1 GM VIAL) IVPB ONE (18:06)
[2017-04-24] MEDS: metroNIDAZOLE 250 MG TABLET PO SCH ×3 (05:03→22:24)
[2017-04-24] MEDS: ALBUTEROL SO4 2.5/IPRATROPIUM 0.5 INH SOL 3 ML VIAL.NEB. NEB PRN ×3 (05:04→23:00)
[2017-04-24] MEDS: SODIUM CHLORIDE 1,000 ML IV SCH (05:05)
[2017-04-24] MEDS ORDERED: PT OWN MED DRAWER 7, Y5N ONE (10:48)
[2017-04-24] MEDS: ENOXAPARIN NA (PORCINE) 60 MG/0.6 ML DISP.SYRIN SQ SCH ×2 (11:01→22:25)
[2017-04-24] MEDS: PANTOPRAZOLE SODIUM 40 MG/100 ML PRE-DOCKED IVPB SCH (11:01)
[2017-04-24] MEDS: LYTES/YERBA SANTA 240 ML BOTTLE MM SCH (11:02)
[2017-04-24] MEDS: BUDESONIDE/FORMETEROL FUMARATE 160/4.5 mcg INHALER IH SCH ×2 (11:02→22:25)
[2017-04-24] MEDS: cefTRIAXone 1 GM/50 ML BAG (PRE-DOCKED) IVPB SCH (11:55)
--- NOTE | 2017-04-24 12:28 | PN ---
Progress Note (short form) - Note Progress Note: PULMONARY Breathing improving. No fevers or chills. Cough with whitish sputum. Last Vital Signs Temp Pulse Resp BP Pulse Ox 99.3 F 111 H 22 107/59 92 L 04/24/17 09:20 04/24/17 09:20 04/24/17 09:20 04/24/17 09:20 04/23/17 22:00 Gen: less tachypneic Heart: tachycardic, regular Lung: scattered rhonchi Abd: soft, nontender Ext: no edema CBC, BMP 04/23/17 06:20 04/23/17 06:20 Active Medications Acetaminophen (Tylenol -) 650 mg PO Q4H PRN PRN Reason: FEVER OR PAIN Last Admin: 04/20/17 23:27 Dose: 650 mg Albuterol/Ipratropium (Duoneb -) 1 amp NEB Q4H PRN PRN Reason: SHORTNESS OF BREATH Last Admin: 04/24/17 09:02 Dose: 1 amp Budesonide/Formoterol Fumarate (Symbicort 160/4.5mcg -) 2 puff IH BID [facility] Last Admin: 04/24/17 11:02 Dose: 2 puff Ceftriaxone Sodium (Rocephin 1gm Ivpb (Pre-Docked)) 1 gm IVPB DAILY [facility] PRN Reason: Protocol Last Admin: 04/24/17 11:55 Dose: 1 gm Dicyclomine HCl (Bentyl -) 10 mg PO Q8H PRN PRN Reason: MUSCLE SPASMS Enoxaparin Sodium (Lovenox -) 60 mg SQ BID [facility] Last Admin: 04/24/17 11:01 Dose: 60 mg Sodium Chloride (Normal Saline -) 1,000 mls @ 100 mls/hr IV [facility] Last Admin: 04/24/17 05:05 Dose: 100 mls/hr Loperamide HCl (Imodium -) 2 mg PO Q4H PRN PRN Reason: DIARRHEA Last Admin: 04/19/17 14:35 Dose: 2 mg Loperamide HCl (Imodium -) 2 mg PO Q6H PRN PRN Reason: DIARRHEA Metronidazole (Flagyl -) 500 mg PO TID [facility] Last Admin: 04/24/17 05:03 Dose: 500 mg Ondansetron HCl (Zofran Injection) 4 mg IVPB Q4H PRN PRN Reason: NAUSEA AND/OR VOMITING Pantoprazole Sodium (Protonix 40mg Ivpb (Pre-Docked)) 40 mg IVPB DAILY [facility] Last Admin: 04/24/17 11:01 Dose: 40 mg Saliva Substitute (Mouthkote Solution -) 1 applic MM DAILY [facility] Last Admin: 04/24/17 11:02 Dose: 1 applic A/P Pneumonia r/o Colitis Lung/Laryngeal Ca s/p Chemotherapy/RT COPD/Emphysema - continue antibiotics - inhaled bronchodilators - O2 as needed - PO as tolerated - aspiration precautions - DVT prophylaxis
[2017-04-25] MEDS: SODIUM CHLORIDE 1,000 ML IV SCH ×2 (05:56→14:55)
[2017-04-25] MEDS: metroNIDAZOLE 250 MG TABLET PO SCH ×3 (05:56→21:46)
[2017-04-25] MEDS: ALBUTEROL SO4 2.5/IPRATROPIUM 0.5 INH SOL 3 ML VIAL.NEB. NEB PRN (06:39)
[2017-04-25 07:49] LABS: BASOPHIL 0.7 % (0-2.0); EOSINOPHIL 1.2 % (0-4.5); MCH 27.3 pg (25.7-33.7); MCHC 32.4 g/dl (32.0-35.9); MEAN CELL VOLUME 84.3 fl (80-96); MEAN PLT VOLUME 7.8 fl (7.5-11.1); NEUTROPHILS 70.4 % (42.8-82.8); PLATELET COUNT 146 K/MM3 (134-434); RDW 16.6 % (11.9-15.9)
[2017-04-25 08:40] LABS: CALCIUM 7.4 mg/dL (8.5-10.1); COCKROFT - GAULT 136.53; CREATININE 0.5 mg/dL (0.7-1.3)
[2017-04-25] MEDS ORDERED: PT OWN MED DRAWER 7, Y5N ONE ×2 (11:36→21:27)
[2017-04-25] MEDS: PANTOPRAZOLE SODIUM 40 MG/100 ML PRE-DOCKED IVPB SCH (11:38)
[2017-04-25] MEDS: cefTRIAXone 1 GM/50 ML BAG (PRE-DOCKED) IVPB SCH (11:38)
[2017-04-25] MEDS: BUDESONIDE/FORMETEROL FUMARATE 160/4.5 mcg INHALER IH SCH ×2 (11:39→21:47)
[2017-04-25] MEDS: ENOXAPARIN NA (PORCINE) 60 MG/0.6 ML DISP.SYRIN SQ SCH ×2 (11:40→21:46)
[2017-04-25] MEDS: LYTES/YERBA SANTA 240 ML BOTTLE MM SCH (11:40)
--- NOTE | 2017-04-25 11:45 | PN ---
Progress Note, Physician Chief Complaint: tachycardia History of Present Illness: denies cp, palpitations, syncope sob but not severe ("not 100%") - Current Medication List Current Medications: Active Medications Acetaminophen (Tylenol -) 650 mg PO Q4H PRN PRN Reason: FEVER OR PAIN Last Admin: 04/20/17 23:27 Dose: 650 mg Budesonide/Formoterol Fumarate (Symbicort 160/4.5mcg -) 2 puff IH BID [facility] Last Admin: 04/25/17 11:39 Dose: 2 puff Ceftriaxone Sodium (Rocephin 1gm Ivpb (Pre-Docked)) 1 gm IVPB DAILY [facility] PRN Reason: Protocol Last Admin: 04/25/17 11:38 Dose: 1 gm Dicyclomine HCl (Bentyl -) 10 mg PO Q8H PRN PRN Reason: MUSCLE SPASMS Enoxaparin Sodium (Lovenox -) 60 mg SQ BID [facility] Last Admin: 04/25/17 11:40 Dose: 60 mg Sodium Chloride (Normal Saline -) 1,000 mls @ 100 mls/hr IV ASDIR [facility] Last Admin: 04/25/17 05:56 Dose: 100 mls/hr Loperamide HCl (Imodium -) 2 mg PO Q4H PRN PRN Reason: DIARRHEA Last Admin: 04/19/17 14:35 Dose: 2 mg Loperamide HCl (Imodium -) 2 mg PO Q6H PRN PRN Reason: DIARRHEA Metronidazole (Flagyl -) 500 mg PO TID [facility] Last Admin: 04/25/17 05:56 Dose: 500 mg Ondansetron HCl (Zofran Injection) 4 mg IVPB Q4H PRN PRN Reason: NAUSEA AND/OR VOMITING Pantoprazole Sodium (Protonix 40mg Ivpb (Pre-Docked)) 40 mg IVPB DAILY [facility] Last Admin: 04/25/17 11:38 Dose: 40 mg Saliva Substitute (Mouthkote Solution -) 1 applic MM DAILY [facility] Last Admin: 04/25/17 11:40 Dose: 1 applic - Objective Vital Signs: Vital Signs Temperature 98.8 F 04/25/17 08:49 Pulse Rate 112 H 04/25/17 08:49 Respiratory Rate 18 04/25/17 08:49 Blood Pressure 112/66 04/25/17 08:49 O2 Sat by Pulse Oximetry (%) 89 L 04/24/17 09:00 Constitutional: Yes: Well Nourished, No Distress, Calm Cardiovascular: Yes: Regular Rate and Rhythm, S1, S2. No: Gallop, Murmur Respiratory: Yes: Regular, CTA Bilaterally. No: Accessory Muscle Use, Rales, Wheezes Extremities: No: Cold Edema: No Neurological: Yes: Alert, Oriented Psychiatric: No: Agitated Labs: CBC, BMP 04/25/17 06:00 04/25/17 06:00 INR, PTT INR 1.60 (0.82-1.09) H 04/17/17 06:30 Assessment/Plan echo: tds. nl lv size/fn. can't exclude rwma. RV not well seen. mild ao dilation chest CTA: no PE (limited study quality). small right sided effusion, other findings similar to chest ct above. chest CT: decreased size of rt perihilar mass. extensive rul bronchictasis with possible cavitary consolidation patchy LLL consolidation. small mediastinal l. nodes. possible colitis. + compression fractures a/p: 72 yo male with h/o lung adenocarcinoma s/p resection chemo and XRT, copd , cholelithiasis, fatty liver who presents with nausea/vomiting. Hospital course complicated by tachycardia. tachycardia: -sinus tachy, ? sec to sepsis, ? sec to active malignancy -cont to tx pna/sepsis with abx/ivfs -echo tds, but without significant structural abnormalities. -appears clinically stable, observe hypotension, sepsis: - hemodynamically stable now copd/adenocarcinoma of lung: - no wheezing. pulm following. - + aspiration. ent, speech and swallow, pulm, ID, onc following.
--- NOTE | 2017-04-25 12:40 | PN ---
Progress Note (short form) - Note Progress Note: PULMONARY Breathing improving. No fevers or chills. Cough with whitish sputum. Saturating 98% on 5L, decreased O2 to 3L. Last Vital Signs Temp Pulse Resp BP Pulse Ox 98.8 F 112 H 18 112/66 89 L 04/25/17 08:49 04/25/17 08:49 04/25/17 08:49 04/25/17 08:49 04/24/17 09:00 Gen: less tachypneic Heart: tachycardic, regular Lung: decreased breath sounds at the bases Abd: soft, nontender Ext: no edema CBC, BMP 04/25/17 06:00 04/25/17 06:00 Active Medications Acetaminophen (Tylenol -) 650 mg PO Q4H PRN PRN Reason: FEVER OR PAIN Last Admin: 04/20/17 23:27 Dose: 650 mg Budesonide/Formoterol Fumarate (Symbicort 160/4.5mcg -) 2 puff IH BID [facility] Last Admin: 04/25/17 11:39 Dose: 2 puff Ceftriaxone Sodium (Rocephin 1gm Ivpb (Pre-Docked)) 1 gm IVPB DAILY [facility] PRN Reason: Protocol Last Admin: 04/25/17 11:38 Dose: 1 gm Dicyclomine HCl (Bentyl -) 10 mg PO Q8H PRN PRN Reason: MUSCLE SPASMS Enoxaparin Sodium (Lovenox -) 60 mg SQ BID [facility] Last Admin: 04/25/17 11:40 Dose: 60 mg Sodium Chloride (Normal Saline -) 1,000 mls @ 100 mls/hr IV ASDIR [facility] Last Admin: 04/25/17 05:56 Dose: 100 mls/hr Loperamide HCl (Imodium -) 2 mg PO Q4H PRN PRN Reason: DIARRHEA Last Admin: 04/19/17 14:35 Dose: 2 mg Loperamide HCl (Imodium -) 2 mg PO Q6H PRN PRN Reason: DIARRHEA Metronidazole (Flagyl -) 500 mg PO TID [facility] Last Admin: 04/25/17 05:56 Dose: 500 mg Ondansetron HCl (Zofran Injection) 4 mg IVPB Q4H PRN PRN Reason: NAUSEA AND/OR VOMITING Pantoprazole Sodium (Protonix 40mg Ivpb (Pre-Docked)) 40 mg IVPB DAILY [facility] Last Admin: 04/25/17 11:38 Dose: 40 mg Saliva Substitute (Mouthkote Solution -) 1 applic MM DAILY [facility] Last Admin: 04/25/17 11:40 Dose: 1 applic A/P Pneumonia r/o Colitis Lung/Laryngeal Ca s/p Chemotherapy/RT COPD/Emphysema - continue antibiotics - inhaled bronchodilators - O2 as needed - PO as tolerated - aspiration precautions - DVT prophylaxis
[2017-04-26] MEDS: SODIUM CHLORIDE 1,000 ML IV SCH ×2 (02:01→13:35)
[2017-04-26] MEDS: metroNIDAZOLE 250 MG TABLET PO SCH ×2 (06:14→14:42)
[2017-04-26 08:26] LABS: BASOPHIL 0.7 % (0-2.0); EOSINOPHIL 0.8 % (0-4.5); MCH 27.5 pg (25.7-33.7); MCHC 32.7 g/dl (32.0-35.9); MEAN CELL VOLUME 84.1 fl (80-96); MEAN PLT VOLUME 7.4 fl (7.5-11.1); NEUTROPHILS 73.9 % (42.8-82.8); PLATELET COUNT 156 K/MM3 (134-434); RDW 16.6 % (11.9-15.9); WHITE BLOOD COUNT 4.1 K/mm3 (4.0-10.0)
[2017-04-26 08:52] LABS: CALCIUM 7.4 mg/dL (8.5-10.1); COCKROFT - GAULT 134.33; CREATININE 0.5 mg/dL (0.7-1.3)
--- NOTE | 2017-04-26 09:51 | PN ---
Progress Note, Physician - Current Medication List Current Medications: Active Medications Acetaminophen (Tylenol -) 650 mg PO Q4H PRN PRN Reason: FEVER OR PAIN Last Admin: 04/20/17 23:27 Dose: 650 mg Budesonide/Formoterol Fumarate (Symbicort 160/4.5mcg -) 2 puff IH BID [facility] Last Admin: 04/25/17 21:47 Dose: 2 puff Ceftriaxone Sodium (Rocephin 1gm Ivpb (Pre-Docked)) 1 gm IVPB DAILY [facility] PRN Reason: Protocol Last Admin: 04/25/17 11:38 Dose: 1 gm Dicyclomine HCl (Bentyl -) 10 mg PO Q8H PRN PRN Reason: MUSCLE SPASMS Enoxaparin Sodium (Lovenox -) 60 mg SQ BID [facility] Last Admin: 04/25/17 21:46 Dose: 60 mg Sodium Chloride (Normal Saline -) 1,000 mls @ 100 mls/hr IV ASDIR [facility] Last Admin: 04/26/17 02:01 Dose: 100 mls/hr Loperamide HCl (Imodium -) 2 mg PO Q4H PRN PRN Reason: DIARRHEA Last Admin: 04/19/17 14:35 Dose: 2 mg Loperamide HCl (Imodium -) 2 mg PO Q6H PRN PRN Reason: DIARRHEA Metronidazole (Flagyl -) 500 mg PO TID [facility] Last Admin: 04/26/17 06:14 Dose: 500 mg Ondansetron HCl (Zofran Injection) 4 mg IVPB Q4H PRN PRN Reason: NAUSEA AND/OR VOMITING Pantoprazole Sodium (Protonix 40mg Ivpb (Pre-Docked)) 40 mg IVPB DAILY [facility] Last Admin: 04/25/17 11:38 Dose: 40 mg Saliva Substitute (Mouthkote Solution -) 1 applic MM DAILY [facility] Last Admin: 04/25/17 11:40 Dose: 1 applic - Objective Vital Signs: Vital Signs Temperature 98.5 F 04/26/17 06:00 Pulse Rate 112 H 04/26/17 06:00 Respiratory Rate 20 04/26/17 06:00 Blood Pressure 124/70 04/26/17 06:00 O2 Sat by Pulse Oximetry (%) 92 L 04/25/17 21:00 Labs: CBC, BMP 04/26/17 07:15 04/26/17 07:15 INR, PTT INR 1.60 (0.82-1.09) H 04/17/17 06:30 Assessment/Plan pt states feels better w loose bm vss [place] foci slight improvment cont as is ifecc to make recomdation to d/c pt soon w f/u tammy rosales
[2017-04-26] MEDS ORDERED: PT OWN MED DRAWER 7, Y5N ONE ×3 (10:32→21:44)
[2017-04-26] MEDS: BUDESONIDE/FORMETEROL FUMARATE 160/4.5 mcg INHALER IH SCH ×2 (10:41→21:56)
[2017-04-26] MEDS: ENOXAPARIN NA (PORCINE) 60 MG/0.6 ML DISP.SYRIN SQ SCH ×2 (10:42→21:56)
[2017-04-26] MEDS: cefTRIAXone 1 GM/50 ML BAG (PRE-DOCKED) IVPB SCH (10:42)
[2017-04-26] MEDS: LYTES/YERBA SANTA 240 ML BOTTLE MM SCH (10:43)
--- NOTE | 2017-04-26 12:50 | PN ---
Progress Note, CLINICAL DOCUMENTATION MANAGER - Note Progress Note: Selected Entries 04/24/17 04/24/17 04/24/17 06:00 09:20 15:00 Breakfast 50% Lunch 50% Supper Temperature 99.0 F 99.3 F 98.5 F 04/24/17 04/24/17 04/25/17 18:00 22:00 08:49 Breakfast Lunch Supper 50% Temperature 97.6 F 98.4 F 98.8 F 04/25/17 04/25/17 04/25/17 10:00 15:00 18:00 Breakfast Lunch Supper Temperature 98.8 F 99.1 F 98.3 F 04/25/17 04/25/17 04/26/17 20:56 22:00 06:00 Breakfast 75% Lunch 75% Supper 50% Temperature 98.3 F 98.5 F 04/26/17 10:29 Breakfast Lunch Supper Temperature 97.4 F L Pt reports that he is less congested but has had diarrhea for 3 days and has no appetite. He "takes a bite of food, drinks water to moisten and swallow." Questionable compliance with honey thick on a tsp. His report of using swallowing compensatory techniques was inconsistent. Rec; Dysphagia chopped with 1-2 soft items, extra gravy. Suggest supervision/directions during meal time for improved follow through, especxially with liquids..
--- NOTE | 2017-04-26 13:13 | PN ---
Progress Note (short form) - Note Progress Note: OOB to chair. Breathing feels about the same. (+) dry cough. No CP. CT : Increase areas of consolidation overlying old chronic changes noted on previous CT imaging Intake & Output 04/23/17 04/24/17 04/25/17 04/26/17 23:59 23:59 23:59 23:59 Intake Total 3630 2570 2100 1150 Output Total 500 839 395 5424 Balance 3130 1870 1700 150 Weight 154 lb 12.8 oz 154 lb 12.8 oz 153 lb 2 oz 152 lb 5 oz Last Vital Signs Temp Pulse Resp BP Pulse Ox 97.4 F L 108 H 28 H 96/58 92 L 04/26/17 10:29 04/26/17 10:40 04/26/17 10:40 04/26/17 10:40 04/25/17 21:00 Active Medications Acetaminophen (Tylenol -) 650 mg PO Q4H PRN PRN Reason: FEVER OR PAIN Last Admin: 04/20/17 23:27 Dose: 650 mg Budesonide/Formoterol Fumarate (Symbicort 160/4.5mcg -) 2 puff IH BID [facility] Last Admin: 04/26/17 10:41 Dose: 2 puff Ceftriaxone Sodium (Rocephin 1gm Ivpb (Pre-Docked)) 1 gm IVPB DAILY [facility] PRN Reason: Protocol Last Admin: 04/26/17 10:42 Dose: 1 gm Dicyclomine HCl (Bentyl -) 10 mg PO Q8H PRN PRN Reason: MUSCLE SPASMS Enoxaparin Sodium (Lovenox -) 60 mg SQ BID [facility] Last Admin: 04/26/17 10:42 Dose: 60 mg Sodium Chloride (Normal Saline -) 1,000 mls @ 100 mls/hr IV ASDIR [facility] Last Admin: 04/26/17 02:01 Dose: 100 mls/hr Loperamide HCl (Imodium -) 2 mg PO Q4H PRN PRN Reason: DIARRHEA Last Admin: 04/19/17 14:35 Dose: 2 mg Loperamide HCl (Imodium -) 2 mg PO Q6H PRN PRN Reason: DIARRHEA Metronidazole (Flagyl -) 500 mg PO TID [facility] Last Admin: 04/26/17 06:14 Dose: 500 mg Ondansetron HCl (Zofran Injection) 4 mg IVPB Q4H PRN PRN Reason: NAUSEA AND/OR VOMITING Pantoprazole Sodium (Protonix 40mg Ivpb (Pre-Docked)) 40 mg IVPB DAILY [facility] Last Admin: 04/25/17 11:38 Dose: 40 mg Saliva Substitute (Mouthkote Solution -) 1 applic MM DAILY [facility] Last Admin: 04/26/17 10:43 Dose: 1 applic Gen: Awake and alert Heart: tachycardic, regular Lung: decreased breath sounds at the bases, right rhonchi Abd: soft, nontender Ext: no edema A/P Pneumonia r/o Colitis Lung/Laryngeal Ca s/p Chemotherapy/RT COPD/Emphysema - ABX per ID - inhaled bronchodilators - O2 as needed - PO as tolerated - aspiration precautions - DVT prophylaxis Dr Cruz
[2017-04-26] MEDS: PANTOPRAZOLE SODIUM 40 MG/100 ML PRE-DOCKED IVPB SCH (13:36)
--- NOTE | 2017-04-26 15:41 | PN ---
Progress Note, Physician History of Present Illness: Reports loose BMs No c/o abdominal pain Less cough. White sputum production No chest pain/ hemoptysis No fever/ chills - Current Medication List Current Medications: Active Medications Acetaminophen (Tylenol -) 650 mg PO Q4H PRN PRN Reason: FEVER OR PAIN Last Admin: 04/20/17 23:27 Dose: 650 mg Budesonide/Formoterol Fumarate (Symbicort 160/4.5mcg -) 2 puff IH BID [facility] Last Admin: 04/26/17 10:41 Dose: 2 puff Ceftriaxone Sodium (Rocephin 1gm Ivpb (Pre-Docked)) 1 gm IVPB DAILY [facility] PRN Reason: Protocol Last Admin: 04/26/17 10:42 Dose: 1 gm Dicyclomine HCl (Bentyl -) 10 mg PO Q8H PRN PRN Reason: MUSCLE SPASMS Enoxaparin Sodium (Lovenox -) 60 mg SQ BID [facility] Last Admin: 04/26/17 10:42 Dose: 60 mg Sodium Chloride (Normal Saline -) 1,000 mls @ 100 mls/hr IV ASDIR [facility] Last Admin: 04/26/17 13:35 Dose: 100 mls/hr Loperamide HCl (Imodium -) 2 mg PO Q4H PRN PRN Reason: DIARRHEA Last Admin: 04/19/17 14:35 Dose: 2 mg Loperamide HCl (Imodium -) 2 mg PO Q6H PRN PRN Reason: DIARRHEA Metronidazole (Flagyl -) 500 mg PO TID [facility] Last Admin: 04/26/17 14:42 Dose: 500 mg Ondansetron HCl (Zofran Injection) 4 mg IVPB Q4H PRN PRN Reason: NAUSEA AND/OR VOMITING Pantoprazole Sodium (Protonix 40mg Ivpb (Pre-Docked)) 40 mg IVPB DAILY [facility] Last Admin: 04/26/17 13:36 Dose: 40 mg Saliva Substitute (Mouthkote Solution -) 1 applic MM DAILY [facility] Last Admin: 04/26/17 10:43 Dose: 1 applic - Objective Vital Signs: Vital Signs Temperature 97.4 F L 04/26/17 10:29 Pulse Rate 108 H 04/26/17 10:40 Respiratory Rate 28 H 04/26/17 10:40 Blood Pressure 96/58 04/26/17 10:40 O2 Sat by Pulse Oximetry (%) 92 L 04/25/17 21:00 Constitutional: Yes: No Distress Eyes: Yes: Conjunctiva Clear Cardiovascular: Yes: Regular Rate and Rhythm, S1, S2 Respiratory: Yes: Rhonchi Gastrointestinal: Yes: Normal Bowel Sounds, Soft. No: Tenderness Edema: No Labs: CBC, BMP 04/26/17 07:15 04/26/17 07:15 INR, PTT INR 1.60 (0.82-1.09) H 04/17/17 06:30 Assessment/Plan R pneumonia Possible recurrence, lung ca Leukocytosis- resolved Day # 10 IV antibiotics D/C ceftriaxone/ flagyl Augemntin 875mg po bid 7d
[2017-04-26] MEDS: AMOX TR/POT CLAV 875MG/125MG TABLETS (FP) PO SCH (17:15)
[2017-04-27] MEDS: SODIUM CHLORIDE 1,000 ML IV SCH (03:21)
[2017-04-27] MEDS: LOPERAMIDE HCL 2 MG CAPSULE PO PRN (05:20)
[2017-04-27 07:48] LABS: BASOPHIL 0.6 % (0-2.0); EOSINOPHIL 0.6 % (0-4.5); MCH 27.7 pg (25.7-33.7); MCHC 33.3 g/dl (32.0-35.9); MEAN CELL VOLUME 83.4 fl (80-96); MEAN PLT VOLUME 7.4 fl (7.5-11.1); NEUTROPHILS 79.5 % (42.8-82.8); PLATELET COUNT 157 K/MM3 (134-434); RDW 16.4 % (11.9-15.9); WHITE BLOOD COUNT 4.6 K/mm3 (4.0-10.0)
[2017-04-27 08:10] LABS: CALCIUM 7.3 mg/dL (8.5-10.1); COCKROFT - GAULT 134.33; CREATININE 0.5 mg/dL (0.7-1.3)
[2017-04-27] MEDS: AMOX TR/POT CLAV 875MG/125MG TABLETS (FP) PO SCH ×2 (08:22→19:04)
[2017-04-27] MEDS ORDERED: PT OWN MED DRAWER 7, Y5N ONE ×3 (10:18→13:30)
[2017-04-27] MEDS: ENOXAPARIN NA (PORCINE) 60 MG/0.6 ML DISP.SYRIN SQ SCH ×2 (10:20→22:28)
[2017-04-27] MEDS: LYTES/YERBA SANTA 240 ML BOTTLE MM SCH (10:20)
[2017-04-27] MEDS: BUDESONIDE/FORMETEROL FUMARATE 160/4.5 mcg INHALER IH SCH ×2 (10:21→22:28)
[2017-04-27] MEDS: PANTOPRAZOLE SODIUM 40 MG/100 ML PRE-DOCKED IVPB SCH (10:21)
--- NOTE | 2017-04-27 11:08 | PN ---
Progress Note, Physician - Current Medication List Current Medications: Active Medications Acetaminophen (Tylenol -) 650 mg PO Q4H PRN PRN Reason: FEVER OR PAIN Last Admin: 04/20/17 23:27 Dose: 650 mg Amoxicillin/Clavulanate Potassium (Augmentin - 875mg Tablet) 1 tab PO BID@0800, 1730 [facility] Last Admin: 04/27/17 08:22 Dose: 1 tab Budesonide/Formoterol Fumarate (Symbicort 160/4.5mcg -) 2 puff IH BID [facility] Last Admin: 04/27/17 10:21 Dose: 2 puff Dicyclomine HCl (Bentyl -) 10 mg PO Q8H PRN PRN Reason: MUSCLE SPASMS Enoxaparin Sodium (Lovenox -) 60 mg SQ BID [facility] Last Admin: 04/27/17 10:20 Dose: 60 mg Loperamide HCl (Imodium -) 2 mg PO Q4H PRN PRN Reason: DIARRHEA Last Admin: 04/27/17 05:20 Dose: 2 mg Loperamide HCl (Imodium -) 2 mg PO Q6H PRN PRN Reason: DIARRHEA Ondansetron HCl (Zofran Injection) 4 mg IVPB Q4H PRN PRN Reason: NAUSEA AND/OR VOMITING Pantoprazole Sodium (Protonix 40mg Ivpb (Pre-Docked)) 40 mg IVPB DAILY [facility] Last Admin: 04/27/17 10:21 Dose: 40 mg Saliva Substitute (Mouthkote Solution -) 1 applic MM DAILY [facility] Last Admin: 04/27/17 10:20 Dose: 1 applic - Objective Vital Signs: Vital Signs Temperature 97.9 F 04/27/17 10:05 Pulse Rate 107 H 04/27/17 10:05 Respiratory Rate 32 H 04/27/17 10:05 Blood Pressure 97/40 04/27/17 10:05 O2 Sat by Pulse Oximetry (%) 92 L 04/26/17 11:15 Labs: CBC, BMP 04/27/17 06:20 04/27/17 06:20 INR, PTT INR 1.60 (0.82-1.09) H 04/17/17 06:30 Assessment/Plan based on bun cr leval ? nutrional nephro to see py ? start clinx iv slowly to prevent metaboli reefeeding syndrome as per nephro honey consist foods w hwad flex and hold breth before swallowing cont tx as is
--- NOTE | 2017-04-27 11:26 | PN ---
Progress Note, IGNITER CAPPER - Note Progress Note: Case reviewed at length with PMD and RN. BUN elevated. IV ordered by PMD. Pt reports only drinking 1 honey thick liquid daily. Counseled/educated pt again on need to use honey thick liquid from a tspn to reduce/hopefully eliminate aspiration. Chin tuck, hold breath, swallow hard. Cough every few sips to clear airway/ residue. Alternate food with sip of liquid. Pt advised to set up appt hugh with [place] [facility] for continued training. Suggest supervision mealtime for improved carryover. I spoke to pt's daughter, Margy, at length and reviewed MBS, swallowing rec, to purchase simply thick and magic cup, and set up sw tx at [facility]. She was receptive and appreciative. She was also advised to monitor pulmonary status, and bring her father to MD immediately if he became congested.
--- NOTE | 2017-04-27 16:27 | PN ---
Progress Note (short form) - Note Progress Note: Resting in bed in NAD. Breathing feels about the same -> overall better from admission. (+) dry cough. No CP. Still requiring 4 L NC O2. Intake & Output 04/24/17 04/25/17 04/26/17 04/27/17 23:59 23:59 23:59 23:59 Intake Total 2570 2100 2700 1500 Output Total 193 516 6023 Balance 1870 1700 1700 1500 Weight 154 lb 12.8 oz 153 lb 2 oz 152 lb 5 oz Last Vital Signs Temp Pulse Resp BP Pulse Ox 98.6 F 108 H 22 136/67 92 L 04/27/17 14:34 04/27/17 14:34 04/27/17 14:34 04/27/17 14:34 04/26/17 11:15 Active Medications Acetaminophen (Tylenol -) 650 mg PO Q4H PRN PRN Reason: FEVER OR PAIN Last Admin: 04/20/17 23:27 Dose: 650 mg Amoxicillin/Clavulanate Potassium (Augmentin - 875mg Tablet) 1 tab PO BID@0800, 1730 [facility] Last Admin: 04/27/17 08:22 Dose: 1 tab Budesonide/Formoterol Fumarate (Symbicort 160/4.5mcg -) 2 puff IH BID [facility] Last Admin: 04/27/17 10:21 Dose: 2 puff Dicyclomine HCl (Bentyl -) 10 mg PO Q8H PRN PRN Reason: MUSCLE SPASMS Enoxaparin Sodium (Lovenox -) 60 mg SQ BID [facility] Last Admin: 04/27/17 10:20 Dose: 60 mg Loperamide HCl (Imodium -) 2 mg PO Q4H PRN PRN Reason: DIARRHEA Last Admin: 04/27/17 05:20 Dose: 2 mg Loperamide HCl (Imodium -) 2 mg PO Q6H PRN PRN Reason: DIARRHEA Ondansetron HCl (Zofran Injection) 4 mg IVPB Q4H PRN PRN Reason: NAUSEA AND/OR VOMITING Pantoprazole Sodium (Protonix 40mg Ivpb (Pre-Docked)) 40 mg IVPB DAILY [facility] Last Admin: 04/27/17 10:21 Dose: 40 mg Saliva Substitute (Mouthkote Solution -) 1 applic MM DAILY [facility] Last Admin: 04/27/17 10:20 Dose: 1 applic Gen: Awake and alert Heart: tachycardic, regular Lung: decreased breath sounds at the bases, right rhonchi Abd: soft, nontender Ext: no edema Laboratory Results - last 24 hr 04/27/17 04/27/17 06:20 06:20 WBC 4.6 RBC 3.87 L Hgb 10.7 L Hct 32.2 L MCV 83.4 MCHC 33.3 RDW 16.4 H Plt Count 157 MPV 7.4 L Neutrophils % 79.5 Lymphocytes % 6.7 L D Monocytes % 12.6 H Eosinophils % 0.6 Basophils % 0.6 Sodium 140 Potassium 3.5 Chloride 104 Carbon Dioxide 28 Anion Gap 8 BUN 2 L* D Creatinine 0.5 L Random Glucose 97 Calcium 7.3 L A/P Pneumonia Lung/Laryngeal Ca s/p Chemotherapy/RT COPD/Emphysema Malnutrition - PO ABX per ID - inhaled bronchodilators - O2 as needed - PO as tolerated - aspiration precautions - DVT prophylaxis - D/C planning -> Patient will follow with docs at [facility]. His family has already obtained copies of CT imaging from Radiology to bring to his MDs at [facility]. Dr Cruz
--- NOTE | 2017-04-27 17:44 | CONSULT ---
Consult Consult Specialty:: Nephrology Reason for Consultation:: called for low bun and creatinine - History of Present Illness Chief Complaint: initially presented with shortness of breath History of Present Illness: Pt is a 72 year old male with pmhx of anemia, emphysema and lung adenoca who initially presented for shortness of breath. I was called to evaluate him for low bun and creatinine. He has not been eating much and has been on fluids for the last few days. His bun and security administrator have been steadily dropping, likely dilutional. He is awake and alert. He denies fevers or chills. - Past Medical History Pulmonary: Yes: Cancer (ADENOCARCINOMA), COPD, O2 Dependent, Pneumonia Gastrointestinal: Yes: Other (gallstones) Hepatobiliary: Yes: Cholelithiasis, Other (fatty liver) ENT: Yes: Other (SCC of epiglottis) - Past Surgical History Past Surgical History: Yes: Hernia Repair - Alcohol/Substance Use Hx Alcohol Use: No (in past) History of Substance Use: reports: None - Smoking History Smoking history: Former smoker Have you smoked in the past 12 months: No Aproximately how many cigarettes per day: 10 (smoked 1ppd since teens until 2 years ago) If you are a former smoker, when did you quit?: APRIL 2015 - Social History ADL: Independent History of Recent Travel: No Home Medications - Allergies Allergies/Adverse Reactions: Allergies Allergy/AdvReac Type Severity Reaction Status Date / Time No Known Drug Allergies Allergy Verified 04/16/17 12:24 - Home Medications Home Medications: Ambulatory Orders Pantoprazole Sodium [Protonix -] 40 mg PO BID 11/23/15 Aspirin [ASA -] 81 mg PO DAILY 04/16/17 Atorvastatin Ca [Lipitor] 5 mg PO HS 04/16/17 Metronidazole [Flagyl -] 500 mg PO BID 04/16/17 Multivitamins [Tab-A-Vit -] 1 tab PO DAILY 04/16/17 Prednisone 10 mg PO BID 04/16/17 Family Disease History - Family Disease History Family Disease History: Other: Father (stroke), Mother (cancer ??type) Review of Systems - Review of Systems Constitutional: reports: Malaise Eyes: reports: No Symptoms HENT: reports: No Symptoms Neck: reports: No Symptoms Cardiovascular: reports: Shortness of Breath Respiratory: reports: Cough, SOB, SOB on Exertion Genitourinary: reports: No Symptoms Musculoskeletal: reports: Muscle Weakness Neurological: reports: No Symptoms Endocrine: reports: No Symptoms Hematology/Lymphatic: reports: No Symptoms Physical Exam Vital Signs: Vital Signs Temperature 98.6 F 04/27/17 14:34 Pulse Rate 108 H 04/27/17 14:34 Respiratory Rate 22 04/27/17 14:34 Blood Pressure 136/67 04/27/17 14:34 O2 Sat by Pulse Oximetry (%) 88 L 04/27/17 11:00 Constitutional: Yes: Calm Eyes: Yes: Conjunctiva Clear HENT: Yes: Atraumatic Neck: Yes: Supple Cardiovascular: Yes: S1, S2 Respiratory: Yes: On Nasal O2, Wheezes Renal/: Yes: WNL Musculoskeletal: Yes: WNL Edema: No Neurological: Yes: Oriented Psychiatric: Yes: Oriented Labs: CBC, BMP 04/27/17 06:20 04/27/17 06:20 Laboratory Tests 04/16/17 04/21/17 04/22/17 13:33 06:52 07:00 Hgb 12.2 BUN 27 H D 15 D Creatinine 1.2 D 0.7 D 04/22/17 04/23/17 04/23/17 07:30 06:20 06:20 Hgb 10.9 L D BUN 11 D 8 D Creatinine 0.7 0.5 L D 04/25/17 04/25/17 04/26/17 06:00 06:00 07:15 Hgb 11.5 L 11.3 L BUN 3 L D Creatinine 0.5 L 04/26/17 04/27/17 04/27/17 07:15 06:20 06:20 Hgb 10.7 L BUN 3 L 2 L* D Creatinine 0.5 L 0.5 L Imaging - Results Cat Scan: Report Reviewed Problem List - Problems (1) Pneumonia Code(s): J18.9 - PNEUMONIA, UNSPECIFIED ORGANISM Qualifiers: Laterality: right Lung location: unspecified part of lung (2) COPD (chronic obstructive pulmonary disease) Code(s): J44.9 - CHRONIC OBSTRUCTIVE PULMONARY DISEASE, UNSPECIFIED (3) Lung neoplasm Code(s): D49.1 - NEOPLASM OF UNSPECIFIED BEHAVIOR OF RESPIRATORY SYSTEM Assessment/Plan Current Medications Generic Name Dose Route Start Last Admin Trade Name Freq PRN Reason Stop Dose Admin Acetaminophen 650 mg 04/16/17 23:26 04/20/17 23:27 Tylenol - PO 650 mg Q4H PRN Administration FEVER OR PAIN Amoxicillin/Clavulanate Potassium 1 tab 04/26/17 17:30 04/27/17 08:22 Augmentin - 875mg Tablet PO 1 tab BID@0800,1730 [facility] Administration Budesonide/Formoterol Fumarate 2 puff 04/22/17 10:00 04/27/17 10:21 Symbicort 160/4.5mcg - IH 2 puff BID [facility] Administration Dicyclomine HCl 10 mg 04/22/17 18:55 Bentyl - PO Q8H PRN MUSCLE SPASMS Enoxaparin Sodium 60 mg 04/21/17 10:00 04/27/17 10:20 Lovenox - SQ 60 mg BID [facility] Administration Loperamide HCl 2 mg 04/19/17 11:56 04/27/17 05:20 Imodium - PO 2 mg Q4H PRN Administration DIARRHEA Loperamide HCl 2 mg 04/19/17 11:57 Imodium - PO Q6H PRN DIARRHEA Ondansetron HCl 4 mg 04/21/17 03:47 Zofran Injection IVPB Q4H PRN NAUSEA AND/OR VOMITING Pantoprazole Sodium 40 mg 04/17/17 10:00 04/27/17 10:21 Protonix 40mg Ivpb (Pre-Docked) IVPB 40 mg DAILY [facility] Administration Saliva Substitute 1 applic 04/22/17 10:00 04/27/17 10:20 Mouthkote Solution - MM 1 applic DAILY [facility] Administration Impression 1. lung cancer 2. malnutrition 3. diarrhea 4. PNA 5. COPD Plan - stop fluids, a big part of the low bun and security administrator is dilution - discussed diet with pt - can try trial of clinimix - check lytes - will follow Dr Burns
[2017-04-27] MEDS ORDERED: AMINO ACIDS 4.25%/D5W 1,000 ML IV SCH (18:00)
--- NOTE | 2017-04-27 18:39 | PN ---
Progress Note, Physician Chief Complaint: sob History of Present Illness: sob but not bad, stable no cp, palpit, syncope - Current Medication List Current Medications: Active Medications Acetaminophen (Tylenol -) 650 mg PO Q4H PRN PRN Reason: FEVER OR PAIN Last Admin: 04/20/17 23:27 Dose: 650 mg Amoxicillin/Clavulanate Potassium (Augmentin - 875mg Tablet) 1 tab PO BID@0800, 1730 [facility] Last Admin: 04/27/17 08:22 Dose: 1 tab Budesonide/Formoterol Fumarate (Symbicort 160/4.5mcg -) 2 puff IH BID [facility] Last Admin: 04/27/17 10:21 Dose: 2 puff Dicyclomine HCl (Bentyl -) 10 mg PO Q8H PRN PRN Reason: MUSCLE SPASMS Enoxaparin Sodium (Lovenox -) 60 mg SQ BID [facility] Last Admin: 04/27/17 10:20 Dose: 60 mg Amino Acids (Clinimix -) 1,000 mls @ 35 mls/hr IV Q24H [facility] Loperamide HCl (Imodium -) 2 mg PO Q4H PRN PRN Reason: DIARRHEA Last Admin: 04/27/17 05:20 Dose: 2 mg Loperamide HCl (Imodium -) 2 mg PO Q6H PRN PRN Reason: DIARRHEA Ondansetron HCl (Zofran Injection) 4 mg IVPB Q4H PRN PRN Reason: NAUSEA AND/OR VOMITING Pantoprazole Sodium (Protonix 40mg Ivpb (Pre-Docked)) 40 mg IVPB DAILY [facility] Last Admin: 04/27/17 10:21 Dose: 40 mg Saliva Substitute (Mouthkote Solution -) 1 applic MM DAILY [facility] Last Admin: 04/27/17 10:20 Dose: 1 applic - Objective Vital Signs: Vital Signs Temperature 98.6 F 04/27/17 14:34 Pulse Rate 108 H 04/27/17 14:34 Respiratory Rate 22 04/27/17 14:34 Blood Pressure 136/67 04/27/17 14:34 O2 Sat by Pulse Oximetry (%) 88 L 04/27/17 11:00 Constitutional: Yes: Well Nourished, No Distress, Calm Cardiovascular: Yes: Regular Rate and Rhythm, S1, S2. No: Gallop, Murmur Respiratory: Yes: Regular, CTA Bilaterally. No: Accessory Muscle Use, Rales, Wheezes Extremities: No: Cold Edema: No Neurological: Yes: Alert, Oriented Psychiatric: No: Agitated Labs: CBC, BMP 04/27/17 06:20 04/27/17 06:20 INR, PTT INR 1.60 (0.82-1.09) H 04/17/17 06:30 Assessment/Plan echo: tds. nl lv size/fn. can't exclude rwma. RV not well seen. mild ao dilation chest CTA: no PE (limited study quality). small right sided effusion, other findings similar to chest ct above. chest CT: decreased size of rt perihilar mass. extensive rul bronchictasis with possible cavitary consolidation patchy LLL consolidation. small mediastinal l. nodes. possible colitis. + compression fractures a/p: 72 yo male with h/o lung adenocarcinoma s/p resection chemo and XRT, copd , cholelithiasis, fatty liver who presents with nausea/vomiting. Hospital course complicated by tachycardia. tachycardia: -sinus tachy, ? sec to sepsis, ? sec to active malignancy -cont to tx pna/sepsis with abx/ivfs -echo tds, but without significant structural abnormalities. -appears clinically stable, observe hypotension, sepsis: - hemodynamically stable now copd/adenocarcinoma of lung: - no wheezing. pulm following. - + aspiration. ent, speech and swallow, pulm, ID, onc following.
[2017-04-28 07:19] LABS: BASOPHIL 0.6 % (0-2.0); MCH 27.5 pg (25.7-33.7); MCHC 33.2 g/dl (32.0-35.9); MEAN CELL VOLUME 82.8 fl (80-96); MEAN PLT VOLUME 7.2 fl (7.5-11.1); NEUTROPHILS 78.8 % (42.8-82.8); PLATELET COUNT 174 K/MM3 (134-434); RDW 16.7 % (11.9-15.9); WHITE BLOOD COUNT 4.5 K/mm3 (4.0-10.0)
[2017-04-28 08:08] LABS: ALBUMIN 1.8 g/dl (3.4-5.0); ALK PHOS 48 U/L (45-117); ANION GAP 6 (8-16); BILIRUBIN,TOTAL 0.4 mg/dL (0.2-1.0); CALCIUM 7.5 mg/dL (8.5-10.1); CO2 30 mmol/L (21-32); COCKROFT - GAULT 167.92; CREATININE 0.4 mg/dL (0.7-1.3); GLUCOSE,RANDOM 116 mg/dL (74-106); MAGNESIUM 1.4 mg/dL (1.8-2.4); PHOSPHOROUS 2.1 mg/dL (2.5-4.9); SGOT/AST 12 U/L (15-37); SGPT/ALT 12 U/L (12-78); TOT PROT 4.9 g/dl (6.4-8.2)
[2017-04-28] MEDS: AMOX TR/POT CLAV 875MG/125MG TABLETS (FP) PO SCH ×2 (08:53→17:39)
[2017-04-28] MEDS: LYTES/YERBA SANTA 240 ML BOTTLE MM SCH (09:00)
[2017-04-28] MEDS: PANTOPRAZOLE SODIUM 40 MG/100 ML PRE-DOCKED IVPB SCH (09:00)
[2017-04-28] MEDS: ENOXAPARIN NA (PORCINE) 60 MG/0.6 ML DISP.SYRIN SQ SCH ×2 (09:00→22:02)
[2017-04-28] MEDS: BUDESONIDE/FORMETEROL FUMARATE 160/4.5 mcg INHALER IH SCH ×2 (10:37→22:03)
--- NOTE | 2017-04-28 11:22 | PN ---
Progress Note, Physician History of Present Illness: Pt seen and examined at bedside. He is awake and alert. He says he is trying to eat more. - Current Medication List Current Medications: Active Medications Acetaminophen (Tylenol -) 650 mg PO Q4H PRN PRN Reason: FEVER OR PAIN Last Admin: 04/20/17 23:27 Dose: 650 mg Amoxicillin/Clavulanate Potassium (Augmentin - 875mg Tablet) 1 tab PO BID@0800, 1730 [facility] Last Admin: 04/28/17 08:53 Dose: 1 tab Budesonide/Formoterol Fumarate (Symbicort 160/4.5mcg -) 2 puff IH BID [facility] Last Admin: 04/28/17 10:37 Dose: 2 puff Dicyclomine HCl (Bentyl -) 10 mg PO Q8H PRN PRN Reason: MUSCLE SPASMS Amino Acids (Clinimix -) 1,000 mls @ 35 mls/hr IV Q24H [facility] Last Admin: 04/27/17 19:36 Dose: 35 mls/hr Loperamide HCl (Imodium -) 2 mg PO Q4H PRN PRN Reason: DIARRHEA Last Admin: 04/27/17 05:20 Dose: 2 mg Loperamide HCl (Imodium -) 2 mg PO Q6H PRN PRN Reason: DIARRHEA Ondansetron HCl (Zofran Injection) 4 mg IVPB Q4H PRN PRN Reason: NAUSEA AND/OR VOMITING Pantoprazole Sodium (Protonix 40mg Ivpb (Pre-Docked)) 40 mg IVPB DAILY [facility] Last Admin: 04/28/17 09:00 Dose: 40 mg Saliva Substitute (Mouthkote Solution -) 1 applic MM DAILY [facility] Last Admin: 04/27/17 10:20 Dose: 1 applic - Objective Vital Signs: Vital Signs Temperature 97.4 F L 04/27/17 18:00 Pulse Rate 108 H 04/27/17 22:00 Respiratory Rate 24 04/27/17 22:00 Blood Pressure 119/58 04/27/17 22:00 O2 Sat by Pulse Oximetry (%) 88 L 04/27/17 11:00 Constitutional: Yes: Calm Eyes: Yes: Conjunctiva Clear HENT: Yes: Atraumatic Cardiovascular: Yes: S1, S2 Respiratory: Yes: On Nasal O2, Wheezes Gastrointestinal: Yes: Soft Genitourinary: Yes: WNL Musculoskeletal: Yes: WNL Edema: Yes Edema: LLE: Trace, RLE: Trace Neurological: Yes: Oriented Psychiatric: Yes: Oriented Labs: CBC, BMP 04/28/17 06:00 04/28/17 06:00 INR, PTT INR 1.60 (0.82-1.09) H 04/17/17 06:30 Problem List - Problems (1) Pneumonia Code(s): J18.9 - PNEUMONIA, UNSPECIFIED ORGANISM Qualifiers: Laterality: right Lung location: unspecified part of lung (2) COPD (chronic obstructive pulmonary disease) Code(s): J44.9 - CHRONIC OBSTRUCTIVE PULMONARY DISEASE, UNSPECIFIED (3) Lung neoplasm Code(s): D49.1 - NEOPLASM OF UNSPECIFIED BEHAVIOR OF RESPIRATORY SYSTEM Assessment/Plan Current Medications Generic Name Dose Route Start Last Admin Trade Name Freq PRN Reason Stop Dose Admin Acetaminophen 650 mg 04/16/17 23:26 04/20/17 23:27 Tylenol - PO 650 mg Q4H PRN Administration FEVER OR PAIN Amoxicillin/Clavulanate Potassium 1 tab 04/26/17 17:30 04/28/17 08:53 Augmentin - 875mg Tablet PO 1 tab BID@0800,1730 [facility] Administration Budesonide/Formoterol Fumarate 2 puff 04/22/17 10:00 04/28/17 10:37 Symbicort 160/4.5mcg - IH 2 puff BID [facility] Administration Dicyclomine HCl 10 mg 04/22/17 18:55 Bentyl - PO Q8H PRN MUSCLE SPASMS Amino Acids 1,000 mls @ 35 mls/hr 04/27/17 18:00 04/27/17 19:36 Clinimix - IV 35 mls/hr Q24H AD[facility] Administration Loperamide HCl 2 mg 04/19/17 11:56 04/27/17 05:20 Imodium - PO 2 mg Q4H PRN Administration DIARRHEA Loperamide HCl 2 mg 04/19/17 11:57 Imodium - PO Q6H PRN DIARRHEA Ondansetron HCl 4 mg 04/21/17 03:47 Zofran Injection IVPB Q4H PRN NAUSEA AND/OR VOMITING Pantoprazole Sodium 40 mg 04/17/17 10:00 04/28/17 09:00 Protonix 40mg Ivpb (Pre-Docked) IVPB 40 mg DAILY [facility] Administration Saliva Substitute 1 applic 04/22/17 10:00 04/27/17 10:20 Mouthkote Solution - MM 1 applic DAILY [facility] Administration Laboratory Tests 04/28/17 06:00 Sodium 139 Potassium 3.5 BUN 2 L* Creatinine 0.4 L Phosphorus 2.1 L Magnesium 1.4 L Impression 1. lung cancer 2. malnutrition 3. diarrhea 4. PNA 5. 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
[2017-04-28 12:12] LABS: ARTERIAL BLOOD GAS BASE EXCESS 4.8 meq/l (-2-2); ARTERIAL BLOOD GAS HCO3 28.2 meq/L (22-26)
[2017-04-28 12:13] LABS: ALLENS TEST POSITIVE; ART PUNCT SITE RIGHT RADIAL; LPM/O2% 4L; PT. ON O2? YES
[2017-04-28 12:14] LABS: TYPE OF O2 NASAL O2
[2017-04-28 12:17] LABS: ARTERIAL BLOOD GAS pH 7.48 (7.35-7.45)
--- NOTE | 2017-04-28 12:34 | PN ---
Progress Note, Physician History of Present Illness: pulmonary alert,feeling better,less dyspneic - Current Medication List Current Medications: Active Medications Acetaminophen (Tylenol -) 650 mg PO Q4H PRN PRN Reason: FEVER OR PAIN Last Admin: 04/20/17 23:27 Dose: 650 mg Amoxicillin/Clavulanate Potassium (Augmentin - 875mg Tablet) 1 tab PO BID@0800, 1730 [facility] Last Admin: 04/28/17 08:53 Dose: 1 tab Budesonide/Formoterol Fumarate (Symbicort 160/4.5mcg -) 2 puff IH BID [facility] Last Admin: 04/28/17 10:37 Dose: 2 puff Dicyclomine HCl (Bentyl -) 10 mg PO Q8H PRN PRN Reason: MUSCLE SPASMS Enoxaparin Sodium (Lovenox -) 60 mg SQ BID [facility] Amino Acids (Clinimix -) 1,000 mls @ 50 mls/hr IV Q20H [facility] Loperamide HCl (Imodium -) 2 mg PO Q4H PRN PRN Reason: DIARRHEA Last Admin: 04/27/17 05:20 Dose: 2 mg Loperamide HCl (Imodium -) 2 mg PO Q6H PRN PRN Reason: DIARRHEA Magnesium Oxide (Mag-Ox -) 400 mg PO BID [facility] Magnesium Sulfate (Magnesium Sulfate) 2 gm IVPB ONCE ONE Stop: 04/28/17 12:46 Ondansetron HCl (Zofran Injection) 4 mg IVPB Q4H PRN PRN Reason: NAUSEA AND/OR VOMITING Pantoprazole Sodium (Protonix 40mg Ivpb (Pre-Docked)) 40 mg IVPB DAILY [facility] Last Admin: 04/28/17 09:00 Dose: 40 mg Potassium Chloride (K-Dur -) 40 meq PO ONCE ONE Stop: 04/28/17 13:01 Potassium Phos/Sodium Phos (Phos-Nak Packet -) 1 packet PO TID [facility] Saliva Substitute (Mouthkote Solution -) 1 applic MM DAILY [facility] Last Admin: 04/27/17 10:20 Dose: 1 applic - Objective Vital Signs: Vital Signs Temperature 97.4 F L 04/27/17 18:00 Pulse Rate 112 H 04/28/17 10:00 Respiratory Rate 22 04/28/17 10:00 Blood Pressure 102/70 04/28/17 10:00 O2 Sat by Pulse Oximetry (%) 93 L 04/28/17 09:00 Constitutional: Yes: Well Nourished, Calm Eyes: Yes: WNL HENT: Yes: WNL Neck: Yes: WNL Cardiovascular: Yes: Regular Rate and Rhythm, S1, S2 Gastrointestinal: Yes: Normal Bowel Sounds, Soft Extremities: Yes: WNL Edema: No Labs: CBC, BMP 04/28/17 06:00 04/28/17 06:00 INR, PTT INR 1.60 (0.82-1.09) H 04/17/17 06:30 Laboratory Tests 04/28/17 12:11 ABG pH 7.48 H ABG pCO2 at Pt Temp 38.6 D ABG pO2 at Pt Temp 54.0 L D ABG HCO3 28.2 H ABG O2 Sat (Measured) 90.0 Oxygen Flow Rate 4l Assessment/Plan Problem List - Problems (1) COPD (chronic obstructive pulmonary disease) Code(s): J44.9 - CHRONIC OBSTRUCTIVE PULMONARY DISEASE, UNSPECIFIED (2) Hx of gallstones Code(s): Z87.19 - PERSONAL HISTORY OF OTHER DISEASES OF THE DIGESTIVE SYSTEM (3) Lung neoplasm Code(s): D49.1 - NEOPLASM OF UNSPECIFIED BEHAVIOR OF RESPIRATORY SYSTEM 4. 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
[2017-04-28] MEDS ORDERED: MAGNESIUM SULF 50% (8.12 MEQ/2 ML-1 GM VIAL) IVPB ONE (12:45)
[2017-04-28] MEDS ORDERED: POTASSIUM CHLORIDE TABS 20 MEQ TABLET.ER (FP) PO ONE (13:00)
[2017-04-28] MEDS: NAPH,MB-DB/K PH,MBDB POWDER PACKET PO SCH ×2 (13:50→22:03)
[2017-04-28] MEDS: MAGNESIUM OXIDE 400 MG TABLET (FP) PO SCH ×2 (13:51→22:02)
--- NOTE | 2017-04-28 14:08 | PN ---
Progress Note, Physician History of Present Illness: comfortable asking to go home audible crackeles - Current Medication List Current Medications: Active Medications Acetaminophen (Tylenol -) 650 mg PO Q4H PRN PRN Reason: FEVER OR PAIN Last Admin: 04/20/17 23:27 Dose: 650 mg Amoxicillin/Clavulanate Potassium (Augmentin - 875mg Tablet) 1 tab PO BID@0800, 1730 [facility] Last Admin: 04/28/17 08:53 Dose: 1 tab Budesonide/Formoterol Fumarate (Symbicort 160/4.5mcg -) 2 puff IH BID [facility] Last Admin: 04/28/17 10:37 Dose: 2 puff Dicyclomine HCl (Bentyl -) 10 mg PO Q8H PRN PRN Reason: MUSCLE SPASMS Enoxaparin Sodium (Lovenox -) 60 mg SQ BID [facility] Amino Acids (Clinimix -) 1,000 mls @ 50 mls/hr IV Q20H [facility] Loperamide HCl (Imodium -) 2 mg PO Q4H PRN PRN Reason: DIARRHEA Last Admin: 04/27/17 05:20 Dose: 2 mg Loperamide HCl (Imodium -) 2 mg PO Q6H PRN PRN Reason: DIARRHEA Magnesium Oxide (Mag-Ox -) 400 mg PO BID [facility] Ondansetron HCl (Zofran Injection) 4 mg IVPB Q4H PRN PRN Reason: NAUSEA AND/OR VOMITING Pantoprazole Sodium (Protonix 40mg Ivpb (Pre-Docked)) 40 mg IVPB DAILY [facility] Last Admin: 04/28/17 09:00 Dose: 40 mg Potassium Phos/Sodium Phos (Phos-Nak Packet -) 1 packet PO TID [facility] Saliva Substitute (Mouthkote Solution -) 1 applic MM DAILY [facility] Last Admin: 04/27/17 10:20 Dose: 1 applic - Objective Vital Signs: Vital Signs Temperature 97.4 F L 04/27/17 18:00 Pulse Rate 112 H 04/28/17 10:00 Respiratory Rate 22 04/28/17 10:00 Blood Pressure 102/70 04/28/17 10:00 O2 Sat by Pulse Oximetry (%) 93 L 04/28/17 09:00 Constitutional: Yes: Other (poor nutrition) Eyes: Yes: WNL HENT: Yes: WNL Neck: Yes: WNL Cardiovascular: Yes: WNL Respiratory: Yes: Diminished, SOB, SOB on Exertion Gastrointestinal: Yes: Other (loose bm) Genitourinary: Yes: WNL Breast(s): Yes: WNL Musculoskeletal: Yes: WNL Extremities: Yes: WNL Edema: No Peripheral Pulses WNL: Yes Integumentary: Yes: WNL Neurological: Yes: WNL ...Motor Strength: WNL Psychiatric: Yes: WNL Labs: CBC, BMP 04/28/17 06:00 04/28/17 06:00 INR, PTT INR 1.60 (0.82-1.09) H 04/17/17 06:30 Assessment/Plan maitain o 2 sat at least 90 4 liter n/c as per dr gregg per nurse cont iv nutrion po atxb d/c home w f/u emersonana damon when bun cr better and may need o2 at home
--- NOTE | 2017-04-28 14:49 | PN ---
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 My concern is continued dehydration with insufficient intake of honey thick liquids. Pt and his daughter have been educated on technique to minimize aspiration and pt is kless congested. It has been rec that daughter purchase simply thick to mix with all liquids desired at home, eg soup, water, juices, etc, as well as add Magic cup for increased nutritional intake b/n meals. Additionally, f/u by sp/katerina tx at [place]. Selected Entries 04/28/17 13:58 Breakfast 75% Lunch 75% Temperature 97.5 F L Laboratory Tests 04/26/17 04/27/17 04/27/17 07:15 06:20 06:20 WBC 4.6 Anion Gap 10 8 BUN 3 L 2 L* D 04/28/17 04/28/17 06:00 06:00 WBC 4.5 Anion Gap 6 L BUN 2 L* Pt states he is having diarrhea twice a day. He had not told nursing. He has conlky had 2 honey thick liquid today, so far at 3 pm. Consider monitoring/charting Honey thick liquid intake. IMP: Not accepting enough PO fluids. RD calculated need of 8 8 oz glasses fluid necessary, more so with honey thick liquid. Diarrhea dehydrates. REC:Pt may benefit in the future from a PEG for supplemental hydration, if dehydration or PNA occurs. I discussed this with the pt but he is not interested in TF. I encouraged him to increase PO fluids, document how many he is drinking,.
[2017-04-28] MEDS: AMINO ACIDS 4.25%/D5W 1,000 ML IV SCH (23:29)
[2017-04-29] MEDS: NAPH,MB-DB/K PH,MBDB POWDER PACKET PO SCH ×2 (06:17→14:37)
[2017-04-29 07:46] LABS: BASOPHIL 0.5 % (0-2.0); EOSINOPHIL 0.9 % (0-4.5); MCH 27.2 pg (25.7-33.7); MCHC 32.8 g/dl (32.0-35.9); MEAN CELL VOLUME 82.9 fl (80-96); MEAN PLT VOLUME 7.3 fl (7.5-11.1); NEUTROPHILS 75.7 % (42.8-82.8); PLATELET COUNT 190 K/MM3 (134-434); RDW 16.7 % (11.9-15.9); WHITE BLOOD COUNT 4.6 K/mm3 (4.0-10.0)
[2017-04-29 08:06] LABS: ALBUMIN 1.8 g/dl (3.4-5.0); ALK PHOS 49 U/L (45-117); ANION GAP 7 (8-16); BILIRUBIN,TOTAL 0.3 mg/dL (0.2-1.0); CALCIUM 7.7 mg/dL (8.5-10.1); CO2 30 mmol/L (21-32); COCKROFT - GAULT 163.2; CREATININE 0.4 mg/dL (0.7-1.3); GLUCOSE,RANDOM 115 mg/dL (74-106); MAGNESIUM 1.8 mg/dL (1.8-2.4); PHOSPHOROUS 2.1 mg/dL (2.5-4.9); SGOT/AST 12 U/L (15-37); SGPT/ALT 12 U/L (12-78); TOT PROT 5.1 g/dl (6.4-8.2)
[2017-04-29] MEDS: AMOX TR/POT CLAV 875MG/125MG TABLETS (FP) PO SCH ×2 (08:39→17:17)
[2017-04-29] MEDS: MAGNESIUM OXIDE 400 MG TABLET (FP) PO SCH (09:15)
[2017-04-29] MEDS: PANTOPRAZOLE SODIUM 40 MG/100 ML PRE-DOCKED IVPB SCH (09:15)
[2017-04-29] MEDS: LYTES/YERBA SANTA 240 ML BOTTLE MM SCH (09:15)
[2017-04-29] MEDS: ENOXAPARIN NA (PORCINE) 60 MG/0.6 ML DISP.SYRIN SQ SCH (09:15)
[2017-04-29] MEDS: BUDESONIDE/FORMETEROL FUMARATE 160/4.5 mcg INHALER IH SCH (09:16)
[2017-04-29] MEDS: AMINO ACIDS 4.25%/D5W 1,000 ML IV SCH ×2 (11:09→15:40)
--- NOTE | 2017-04-29 11:15 | PN ---
Progress Note, Physician - Current Medication List Current Medications: Active Medications Acetaminophen (Tylenol -) 650 mg PO Q4H PRN PRN Reason: FEVER OR PAIN Last Admin: 04/20/17 23:27 Dose: 650 mg Amoxicillin/Clavulanate Potassium (Augmentin - 875mg Tablet) 1 tab PO BID@0800, 1730 [facility] Last Admin: 04/29/17 08:39 Dose: 1 tab Budesonide/Formoterol Fumarate (Symbicort 160/4.5mcg -) 2 puff IH BID [facility] Last Admin: 04/29/17 09:16 Dose: 2 puff Dicyclomine HCl (Bentyl -) 10 mg PO Q8H PRN PRN Reason: MUSCLE SPASMS Enoxaparin Sodium (Lovenox -) 60 mg SQ BID [facility] Last Admin: 04/29/17 09:15 Dose: 60 mg Amino Acids (Clinimix -) 1,000 mls @ 50 mls/hr IV Q20H [facility] Last Admin: 04/29/17 11:09 Dose: Not Given Loperamide HCl (Imodium -) 2 mg PO Q4H PRN PRN Reason: DIARRHEA Last Admin: 04/27/17 05:20 Dose: 2 mg Loperamide HCl (Imodium -) 2 mg PO Q6H PRN PRN Reason: DIARRHEA Magnesium Oxide (Mag-Ox -) 400 mg PO BID [facility] Last Admin: 04/29/17 09:15 Dose: 400 mg Ondansetron HCl (Zofran Injection) 4 mg IVPB Q4H PRN PRN Reason: NAUSEA AND/OR VOMITING Pantoprazole Sodium (Protonix 40mg Ivpb (Pre-Docked)) 40 mg IVPB DAILY [facility] Last Admin: 04/29/17 09:15 Dose: 40 mg Potassium Phos/Sodium Phos (Phos-Nak Packet -) 1 packet PO TID [facility] Last Admin: 04/29/17 06:17 Dose: 1 packet Saliva Substitute (Mouthkote Solution -) 1 applic MM DAILY [facility] Last Admin: 04/29/17 09:15 Dose: 1 applic - Objective Vital Signs: Vital Signs Temperature 98.1 F 04/29/17 06:00 Pulse Rate 114 H 04/29/17 06:00 Respiratory Rate 22 04/29/17 06:00 Blood Pressure 119/58 04/29/17 06:00 O2 Sat by Pulse Oximetry (%) 93 L 04/28/17 21:00 Labs: CBC, BMP 04/29/17 06:45 04/29/17 06:45 INR, PTT INR 1.60 (0.82-1.09) H 04/17/17 06:30 Assessment/Plan pt comfotable vss looking good vss labs good dc home today f/u leandro for swalling technic o2 home set w dr randall cont po augmentin bid x 5 days appt w me 1200 sat spoke w daughter
--- NOTE | 2017-04-29 11:16 | PN ---
Progress Note (short form) - Note Progress Note: Resting in bed in NAD. Breathing feels about the same -> overall better from admission. (+) dry cough. No CP. Still requiring 4 L NC O2. Intake & Output 04/24/17 04/25/17 04/26/17 04/27/17 23:59 23:59 23:59 23:59 Intake Total 2570 2100 2700 1500 Output Total 650 277 1528 Balance 1870 1700 1700 1500 Weight 154 lb 12.8 oz 153 lb 2 oz 152 lb 5 oz Last Vital Signs Temp Pulse Resp BP Pulse Ox 98.6 F 108 H 22 136/67 92 L 04/27/17 14:34 04/27/17 14:34 04/27/17 14:34 04/27/17 14:34 04/26/17 11:15 Active Medications Acetaminophen (Tylenol -) 650 mg PO Q4H PRN PRN Reason: FEVER OR PAIN Last Admin: 04/20/17 23:27 Dose: 650 mg Amoxicillin/Clavulanate Potassium (Augmentin - 875mg Tablet) 1 tab PO BID@0800, 1730 [facility] Last Admin: 04/27/17 08:22 Dose: 1 tab Budesonide/Formoterol Fumarate (Symbicort 160/4.5mcg -) 2 puff IH BID [facility] Last Admin: 04/27/17 10:21 Dose: 2 puff Dicyclomine HCl (Bentyl -) 10 mg PO Q8H PRN PRN Reason: MUSCLE SPASMS Enoxaparin Sodium (Lovenox -) 60 mg SQ BID [facility] Last Admin: 04/27/17 10:20 Dose: 60 mg Loperamide HCl (Imodium -) 2 mg PO Q4H PRN PRN Reason: DIARRHEA Last Admin: 04/27/17 05:20 Dose: 2 mg Loperamide HCl (Imodium -) 2 mg PO Q6H PRN PRN Reason: DIARRHEA Ondansetron HCl (Zofran Injection) 4 mg IVPB Q4H PRN PRN Reason: NAUSEA AND/OR VOMITING Pantoprazole Sodium (Protonix 40mg Ivpb (Pre-Docked)) 40 mg IVPB DAILY [facility] Last Admin: 04/27/17 10:21 Dose: 40 mg Saliva Substitute (Mouthkote Solution -) 1 applic MM DAILY [facility] Last Admin: 04/27/17 10:20 Dose: 1 applic Gen: Awake and alert Heart: tachycardic, regular Lung: decreased breath sounds at the bases, right rhonchi Abd: soft, nontender Ext: no edema Laboratory Results - last 24 hr 04/27/17 04/27/17 06:20 06:20 WBC 4.6 RBC 3.87 L Hgb 10.7 L Hct 32.2 L MCV 83.4 MCHC 33.3 RDW 16.4 H Plt Count 157 MPV 7.4 L Neutrophils % 79.5 Lymphocytes % 6.7 L D Monocytes % 12.6 H Eosinophils % 0.6 Basophils % 0.6 Sodium 140 Potassium 3.5 Chloride 104 Carbon Dioxide 28 Anion Gap 8 BUN 2 L* D Creatinine 0.5 L Random Glucose 97 Calcium 7.3 L A/P Pneumonia Lung/Laryngeal Ca s/p Chemotherapy/RT COPD/Emphysema Malnutrition - I set up portable/Home O2 with [facility] at [facility] - PO ABX per ID - inhaled bronchodilators - O2 as needed - PO as tolerated - aspiration precautions - D/C planning -> Patient will follow with docs at [facility]. His family has already obtained copies of CT imaging from Radiology to bring to his MDs at [facility]. Dr Cruz
[2017-04-29 14:33] VITALS: BP 102/57; TEMP 97.6
[2017-04-29 16:36] VITALS: PULSE 122
--- NOTE | 2017-04-29 16:49 | PN ---
Progress Note, Physician History of Present Illness: Pt seen and examined at bedside. He is awake and alert. He is eager to go home. He says that his PO intake improved. - Current Medication List Current Medications: Active Medications Acetaminophen (Tylenol -) 650 mg PO Q4H PRN PRN Reason: FEVER OR PAIN Last Admin: 04/20/17 23:27 Dose: 650 mg Amoxicillin/Clavulanate Potassium (Augmentin - 875mg Tablet) 1 tab PO BID@0800, 1730 [facility] Last Admin: 04/29/17 08:39 Dose: 1 tab Budesonide/Formoterol Fumarate (Symbicort 160/4.5mcg -) 2 puff IH BID [facility] Last Admin: 04/29/17 09:16 Dose: 2 puff Dicyclomine HCl (Bentyl -) 10 mg PO Q8H PRN PRN Reason: MUSCLE SPASMS Enoxaparin Sodium (Lovenox -) 60 mg SQ BID [facility] Last Admin: 04/29/17 09:15 Dose: 60 mg Amino Acids (Clinimix -) 1,000 mls @ 50 mls/hr IV Q20H [facility] Last Admin: 04/29/17 15:40 Dose: Not Given Loperamide HCl (Imodium -) 2 mg PO Q4H PRN PRN Reason: DIARRHEA Last Admin: 04/27/17 05:20 Dose: 2 mg Loperamide HCl (Imodium -) 2 mg PO Q6H PRN PRN Reason: DIARRHEA Magnesium Oxide (Mag-Ox -) 400 mg PO BID [facility] Last Admin: 04/29/17 09:15 Dose: 400 mg Ondansetron HCl (Zofran Injection) 4 mg IVPB Q4H PRN PRN Reason: NAUSEA AND/OR VOMITING Pantoprazole Sodium (Protonix 40mg Ivpb (Pre-Docked)) 40 mg IVPB DAILY [facility] Last Admin: 04/29/17 09:15 Dose: 40 mg Potassium Phos/Sodium Phos (Phos-Nak Packet -) 1 packet PO TID [facility] Last Admin: 04/29/17 14:37 Dose: 1 packet Saliva Substitute (Mouthkote Solution -) 1 applic MM DAILY [facility] Last Admin: 04/29/17 09:15 Dose: 1 applic - Objective Vital Signs: Vital Signs Temperature 97.6 F 04/29/17 14:00 Pulse Rate 122 H 04/29/17 16:17 Respiratory Rate 20 04/29/17 14:00 Blood Pressure 102/57 04/29/17 14:00 O2 Sat by Pulse Oximetry (%) 90 L 04/29/17 16:17 Constitutional: Yes: Calm Eyes: Yes: Conjunctiva Clear HENT: Yes: Atraumatic Cardiovascular: Yes: S1, S2 Respiratory: Yes: On Nasal O2, Wheezes Gastrointestinal: Yes: Soft Genitourinary: Yes: WNL Musculoskeletal: Yes: WNL Edema: No Neurological: Yes: Oriented Psychiatric: Yes: Oriented Labs: CBC, BMP 04/29/17 06:45 04/29/17 06:45 INR, PTT INR 1.60 (0.82-1.09) H 04/17/17 06:30 Problem List - Problems (1) Pneumonia Code(s): J18.9 - PNEUMONIA, UNSPECIFIED ORGANISM Qualifiers: Laterality: right Lung location: unspecified part of lung (2) COPD (chronic obstructive pulmonary disease) Code(s): J44.9 - CHRONIC OBSTRUCTIVE PULMONARY DISEASE, UNSPECIFIED (3) Lung neoplasm Code(s): D49.1 - NEOPLASM OF UNSPECIFIED BEHAVIOR OF RESPIRATORY SYSTEM Assessment/Plan Current Medications Generic Name Dose Route Start Last Admin Trade Name Freq PRN Reason Stop Dose Admin Acetaminophen 650 mg 04/16/17 23:26 04/20/17 23:27 Tylenol - PO 650 mg Q4H PRN Administration FEVER OR PAIN Amoxicillin/Clavulanate Potassium 1 tab 04/26/17 17:30 04/29/17 08:39 Augmentin - 875mg Tablet PO 1 tab BID@0800,1730 AD[facility] Administration Budesonide/Formoterol Fumarate 2 puff 04/22/17 10:00 04/29/17 09:16 Symbicort 160/4.5mcg - IH 2 puff BID [facility] Administration Dicyclomine HCl 10 mg 04/22/17 18:55 Bentyl - PO Q8H PRN MUSCLE SPASMS Enoxaparin Sodium 60 mg 04/28/17 22:00 04/29/17 09:15 Lovenox - SQ 60 mg BID [facility] Administration Amino Acids 1,000 mls @ 50 mls/hr 04/28/17 11:24 04/29/17 15:40 Clinimix - IV Not Given Q20H [facility] Loperamide HCl 2 mg 04/19/17 11:56 04/27/17 05:20 Imodium - PO 2 mg Q4H PRN Administration DIARRHEA Loperamide HCl 2 mg 04/19/17 11:57 Imodium - PO Q6H PRN DIARRHEA Magnesium Oxide 400 mg 04/28/17 12:45 04/29/17 09:15 Mag-Ox - PO 400 mg BID [facility] Administration Ondansetron HCl 4 mg 04/21/17 03:47 Zofran Injection IVPB Q4H PRN NAUSEA AND/OR VOMITING Pantoprazole Sodium 40 mg 04/17/17 10:00 04/29/17 09:15 Protonix 40mg Ivpb (Pre-Docked) IVPB 40 mg DAILY [facility] Administration Potassium Phos/Sodium Phos 1 packet 04/28/17 13:00 04/29/17 14:37 Phos-Nak Packet - PO 1 packet TID [facility] Administration Saliva Substitute 1 applic 04/22/17 10:00 04/29/17 09:15 Mouthkote Solution - MM 1 applic DAILY [facility] Administration Laboratory Tests 04/29/17 06:45 Phosphorus 2.1 L Magnesium 1.8 D Impression 1. lung cancer 2. malnutrition 3. diarrhea 4. PNA 5. 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
== END 2017-04-29 19:25 | disposition home health service (06) | DRG 180 ==
LOC: JER 12:16 → JERBED 14:52 → J5S 17:02 → UNDODISIN 20:04
PROVIDERS: ADMIT Family Medicine; ATTEND Family Medicine
DX: C34.90 Malignant neoplasm of unspecified part of unspecified bronchus or lung (principal); J18.9 Pneumonia, unspecified organism; J44.0 Chronic obstructive pulmonary disease with (acute) lower respiratory infection; E46 Unspecified protein-calorie malnutrition; K80.20 Calculus of gallbladder without cholecystitis without obstruction; J44.9 Chronic obstructive pulmonary disease, unspecified; Z68.22 Body mass index [BMI] 22.0-22.9, adult; R19.7 Diarrhea, unspecified; D72.829 Elevated white blood cell count, unspecified; R13.10 Dysphagia, unspecified; Z87.891 Personal history of nicotine dependence; R00.0 Tachycardia, unspecified; I95.9 Hypotension, unspecified; R10.11 Right upper quadrant pain
CPT/HCPCS: 36415; 36600; 71010-TC; 71260-TC; 71275-TC; 74177-TC; 74230-TC; 76705-TC; 78227-TC; 80048; 80053; 82550; 82803; 83605; 83690; 83735; 84100; 84484; 85025; 85027; 85379; 85610; 87040; 87070; 87205; 87324; 87328; 87329; 87449; 87899; 92611-GN; 93005; 93010; 93306-TC; 94640; 94761; 97116-GP; 97162-PG; 99284-25; A9537